=== PATIENT | female | born 1990 | race Caucasian/White ===

== ENCOUNTER 2016-07-20 09:21 | Emergency (ER) | payer OTHER ==
[~2016-07-20] VITALS: Ht 157.5 cm; Wt 66.5 kg
[2016-07-20 09:32] VITALS: BP 114/70; PULSE 86; TEMP 36.9; O2SAT 98; Ht 157.5 cm; Wt 66.5 kg
[2016-07-20] MEDS ORDERED: PRENTAB26 PO (10:22)
--- NOTE | 2016-07-20 10:48 | EMERGENCY ROOM VISIT NOTE ---
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 The patient washed out the wound very well at the time of the exposure. The source patient was identified as Robert Jones in Rm [id number]. REVIEW OF SYSTEMS: The patient's medical history form was completed and reviewed with positive pertinent findings as noted in history of present illness. PMH: The patient is healthy; there is no significant medical history. SOCIAL HISTORY: Patient lives with her significant other. The patient denies any tobacco or alcohol use. PHYSICAL EXAM: Vital Signs are reviewed: Reviewed Nurse's notes and agree. GENERAL: 25 year-old white female appears in no acute distress. MENTAL status: Alert oriented x3. LEFT INDEX FINGER: There is a small puncture wound on the palmar aspect of the proximal phalanx. No active bleeding noted. EMERGENCY DEPARTMENT COURSE: The wound was cleaned with iodine and bacitracin and a bandage applied. Significant body fluid exposure laboratory requisition for employee health was completed, calcium for HIV related test was completed, informed consent for HIV antibody test was reviewed and signed. DIAGNOSIS: Significant body fluid exposure secondary to needle stick DISCHARGE INSTRUCTIONS: Any signs of infection, follow-up with your family doctor. The hospital we'll call you with results of the testing. This will be done through occupational health. Current/Historical Medications Scheduled Multivit/Min/Iron/Fol Ac/Pren ( Vitamin), 1 TAB PO DAILY Allergies Coded Allergies: No Known Allergies (Verified , 07/20/16) Uncoded Allergies: UNKNOWN (Allergy, Unknown, 08/31/02) Vital Signs Date Time Temp Pulse Resp B/P Pulse Ox O2 Delivery O2 Flow Rate FiO2 07/20/16 09:32 36.9 86 20 114/70 98 Room Air Departure Information Referrals Randall Lucio M.D. (PCP) Patient Instructions A Signature Page, [facility]
== END 2016-07-20 10:50 | disposition home or self-care (01) ==
LOC: C.EDB 09:22
DX: S61.231A Puncture wound without foreign body of left index finger without damage to nail, initial encounter (principal); Z77.21 Contact with and (suspected) exposure to potentially hazardous body fluids; W46.1XXA Contact with contaminated hypodermic needle, initial encounter; Y99.0 Civilian activity done for income or pay

== ENCOUNTER 2017-02-15 05:30 | Inpatient (IN) | payer OTHER ==
[~2017-02-15] VITALS: Ht 157.5 cm; Wt 79.1 kg
[~2017-02-15 05:30] MED LIST: PRENTAB26 PO
[2017-02-15] MEDS ORDERED: RANI150T3 PO (06:20)
[2017-02-15] MEDS ORDERED: DOCU-94 PO (06:20)
[2017-02-15] MEDS ORDERED: SUCR1TAB29 PO (06:20)
[2017-02-15 06:21] VITALS: Ht 157.5 cm; Wt 79.1 kg
[2017-02-15] MEDS: LACTATED RINGER'S 1000ML 1,000 ML IV SCH ×2 (06:30→07:40)
[2017-02-15] MEDS ORDERED: BUPIVACAINE 0.25% 30 ML VIAL ONE (06:53)
[2017-02-15] MEDS ORDERED: FENTANYL CITRATE INJ 50 MCG/1 ML 2 ML VIAL ONE (06:53)
[2017-02-15] MEDS ORDERED: EpHEDrine SULFATE INJ 50 MG/ML AMP ONE (06:53)
[2017-02-15] MEDS ORDERED: FENTANYL 2MCG/ML ROPIV 1.25MG/ML 100ML BAG EPI ONE (06:53)
[2017-02-15 07:03] LABS: HEMATOCRIT 38.3 % (37-47); MEAN CELL VOLUME 86.3 fL (80-100); MEAN CORPUSCULAR HEMOGLOBIN 29.3 pg (25-34); MEAN PLATELET VOLUME 9.7 fL (7.4-10.4); PLATELET COUNT 204 K/uL (130-400); RED BLOOD COUNT 4.44 M/uL (4.2-5.4); WHITE BLOOD COUNT 8.63 K/uL (4.8-10.8)
[2017-02-15 07:26] LABS: MEAN CORPUSCULAR HGB CONC 33.9 g/dl (32-36)
--- NOTE | 2017-02-15 07:45 | HISTORY & PHYSICAL EXAMINATION ---
DATE OF ADMISSION: 02/15/2017 HISTORY OF PRESENT ILLNESS: The patient is a 26-year-old , due date is 03/05/2017 making her 38+ weeks today, presented to labor and delivery with spontaneous rupture of membranes at 0400 hours. Amniotic fluid was clear on rupture. On labor and delivery, she is grossly ruptured and amniotic fluid is clear. She is 4 cm, 80% and -1 station. Bedside ultrasound shows cephalic presentation. heart rate is category 1. The patient is basia every 2-4 minutes. COURSE: Has been unremarkable. LABORATORY DATA: Blood type A positive, antibody negative, GBS is negative. RPR nonreactive. PAST MEDICAL HISTORY: 1. History of ventriculoseptal defect. 2. Depression. PAST SURGICAL HISTORY: The patient has had colposcopy and dental surgery. ALLERGIES: The patient has no known medical allergies. SOCIAL HISTORY: Nonsmoker. Nondrug user. Denies tobacco use as well. FAMILY HISTORY: Noncontributory. OBSTETRICAL AND GYNECOLOGICAL HISTORY: The patient is a [employer] . The patient, because of a history of ventriculoseptal defect, saw maternal medicine. individualized education plan aide was consulted as well as Dr. Stone. Even though the patient has a history of ventriculoseptal defect, she does not need any extra monitoring nor she requires assistance in second stage of labor. PHYSICAL EXAMINATION: GENERAL: Well-developed, well-nourished white female in no acute distress. HEART: S1, S2, regular rhythm and rate. LUNGS: Clear to auscultation bilaterally. ABDOMEN: Gravid. Bedside ultrasound shows cephalic presentation. PELVIC: The patient is 4 cm, 80% and -1 station. EXTREMITIES: No cyanosis, clubbing or edema. ASSESSMENT AND PLAN: A 28-year-old 1, para 0 at 38+ weeks, premature rupture of membranes. Plan is to admit patient and anticipate vaginal delivery.
[2017-02-15] MEDS ORDERED: LACTATED RINGER'S 1000ML 500 ML IV PRN (07:50)
[2017-02-15] MEDS ORDERED: NALOXONE HCL INJ 1 MG in SODIUM CHLORIDE 0.9% 1000ML 1,000 ML IV PRN (07:50)
[2017-02-15] MEDS ORDERED: DiphenhydrAMINE HCL 50 MG/ML VIAL IV PRN (08:00)
[2017-02-15] MEDS ORDERED: FENTANYL 2MCG/ML ROPIV 1.25MG/ML 100ML BAG EPI PRN (08:00)
[2017-02-15] MEDS ORDERED: NALBUPHINE HCL INJ 10 MG/ML AMP IV PRN (08:00)
[2017-02-15] MEDS ORDERED: EpHEDrine SULFATE INJ 50 MG/ML AMP IV PRN (08:00)
[2017-02-15] MEDS ORDERED: NALOXONE HCL INJ 0.4 MG/1 ML VIAL/CARP IV PRN (08:00)
[2017-02-15] MEDS ORDERED: ONDANSETRON INJ 2 MG/ML 2 ML VIAL IV PRN (08:00)
[2017-02-15] MEDS ORDERED: OXYTOCIN 30 UNITS/500ML NSS IV ONE (09:25)
[2017-02-15] MEDS ORDERED: METHYLERGONOVINE MALEATE 0.2 MG/ML AMP ONE (10:38)
[2017-02-15] MEDS ORDERED: LANOLIN OINT EXT PRN ×2 (10:45)
[2017-02-15] MEDS ORDERED: OXYCODONE/ACETAMINOPHEN 5-325 TAB PO PRN (10:45)
[2017-02-15] MEDS ORDERED: OXYTOCIN 30 UNITS/500ML NSS IV PRN (10:45)
[2017-02-15] MEDS ORDERED: ACETAMINOPHEN 325 MG TAB PO PRN (10:45)
[2017-02-15] MEDS ORDERED: MEASLES, MUMPS & RUBELLA VIRUS VIAL SQ. ONE (10:45)
[2017-02-15] MEDS ORDERED: HYDROCORTISONE ACETATE 25 MG SUPP PR PRN (10:45)
[2017-02-15] MEDS ORDERED: ACETAMINOPHEN/CODEINE 300/30MG TAB PO PRN ×2 (10:45)
[2017-02-15] MEDS ORDERED: DIPHTHERIA/TETANUS/PERTUSSIS 0.5 ML SYR/VIAL IM. ONE (10:45)
[2017-02-15] MEDS ORDERED: BENZOCAINE 20% AER SPR 82.5 GM CAN EXT PRN (10:45)
[2017-02-15] MEDS ORDERED: SUPERCREAM 0.870 % 15GM JAR EXT PRN (10:45)
--- NOTE | 2017-02-15 10:59 | DELIVERY SUMMARY ---
DATE OF OPERATION: 02/15/2017 TIME OF DELIVERY: 10:33 a.m. DELIVERY OF PLACENTA: 10:35 a.m. DELIVERY NOTE: The patient is a 26-year-old 1 para 0 at 37 weeks and 3 days gestation who is admitted to labor and delivery on the morning of February 15, 2017, with spontaneous rupture of membranes that occurred at 4:30 a.m. with clear amniotic fluid noted. She received an epidural for anesthesia and progressed spontaneously on her own. She reached complete dilation at 10:11 a.m. with urge to push. She pushed to delivery at 10:33 a.m. She delivered a viable male in the left occiput anterior position to an intact perineum. The baby was then delivered and placed on the patient's abdomen. Cord was clamped x2 and cut. Apgars were 8 at 1 minute and 9 at 5 minutes. Please see nursing notes for further baby assessment. Cord blood was then obtained and intact placenta with 3-vessel cord was delivered at 10:35. Oxytocin infusion was then began. The lower uterine segment and vagina was cleared of any blood clots and debris. Exploration of the perineum noted on laceration. Estimated blood loss was 400 cc. All sponge and instrument counts were found to be correct x2. The patient tolerated the delivery well and was in recovery with stable vital signs. I attest to the content of the Intraoperative Record and any orders documented therein. Any exception s are noted below.
--- NOTE | 2017-02-15 11:18 | Anesthesia Procedure Note ---
Anesthesia Epidural Removal Nt Date & Time Feb 15, 2017 at 11:18 Vital Signs Pain Intensity: 0.0 Notes Mental Status: alert / awake / arousable, participated in evaluation Nausea / Vomiting: adequately controlled Pain: adequately controlled Airway Patency, RR, SpO2: stable & adequate BP & HR: stable & adequate Hydration State: stable & adequate Neuraxial Anesthesia: was administered, sensory block is resolving Anesthetic Complications: no major complications apparent, pt satisfied with anesthetic care Epidural: removed without complications, with tip intact
[2017-02-15 15:00] VITALS: BP 105/70; PULSE 85; TEMP 36.5
[2017-02-15] MEDS: DOCUSATE SODIUM 100 MG CAP PO SCH (19:33)
[2017-02-15 19:40] VITALS: BP 106/72; PULSE 89; TEMP 36.8; O2SAT 98
[2017-02-16] VITALS: BP 110/72; PULSE 87; TEMP 36.8
[2017-02-16] MEDS: IBUPROFEN 600 MG TAB PO PRN ×3 (00:37→19:39)
[2017-02-16 04:15] VITALS: BP 118/64; TEMP 36.6
[2017-02-16 06:56] LABS: HEMATOCRIT 34.6 % (37-47)
[2017-02-16 07:28] VITALS: BP 101/70; PULSE 88; TEMP 36.7; O2SAT 98
[2017-02-16] MEDS: FERROUS SULFATE 325 MG TAB PO SCH (08:50)
[2017-02-16] MEDS: PRENATAL VITAMIN TAB PO SCH (08:50)
[2017-02-16] MEDS: DOCUSATE SODIUM 100 MG CAP PO SCH ×2 (08:50→19:37)
--- NOTE | 2017-02-16 11:10 | OB/GYN Progress Note ---
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 Subjective conversation w/ patient, physical exam Ambulation: ambulating normally Voiding: no voiding problems Passing Gas: Yes Diet Tolerance: Regular Diet Lochia: Small Feeding Type: Breast Feeding Objective Vital Signs Date Time Temp Pulse Resp B/P (MAP) Pulse Ox O2 Delivery O2 Flow Rate FiO2 02/16/17 08:00 Room Air 02/16/17 07:28 36.7 88 20 101/70 (80) 98 Room Air 02/16/17 04:15 36.6 18 118/64 (82) Room Air 02/16/17 00:00 36.8 87 18 110/72 (85) 02/16/17 00:00 Room Air 02/15/17 19:40 36.8 89 18 106/72 (83) 98 Room Air 02/15/17 15:00 36.5 85 16 105/70 (82) Room Air 02/15/17 15:00 Room Air Physical Exam General Appearance: WELL-APPEARING, NO APPARENT DISTRESS Abdomen: non tender, soft Fundus: Firm Extremities: non-tender, normal inspection, no pedal edema Laboratory Results Last 24 Hours Test 02/16/17 06:28 Hemoglobin 11.6 g/dL Hematocrit 34.6 % Assessment and Plan Post- Day Number: 1 Continue Routine Care: TENT D/C IN am
[2017-02-16 15:00] VITALS: BP 129/75; PULSE 82; TEMP 36.6; O2SAT 97
[2017-02-16 15:30] VITALS: O2SAT 97
[2017-02-16] MEDS ORDERED: BISACODYL 5 MG TABEC PO SCH (20:00)
[2017-02-16 23:30] VITALS: BP 110/71; PULSE 92; TEMP 36.5; O2SAT 96
[2017-02-17 06:57] LABS: HEMATOCRIT 34.1 % (37-47); MEAN CORPUSCULAR HEMOGLOBIN 28.3 pg (25-34); MEAN CORPUSCULAR HGB CONC 32.6 g/dl (32-36); MEAN PLATELET VOLUME 9.7 fL (7.4-10.4); PLATELET COUNT 203 K/uL (130-400); RED BLOOD COUNT 3.92 M/uL (4.2-5.4); WHITE BLOOD COUNT 10.31 K/uL (4.8-10.8)
[2017-02-17] MEDS ORDERED: BISACODYL 10 MG SUPP PR PRN (07:00)
[2017-02-17 07:50] VITALS: BP 102/71; PULSE 86; TEMP 36.7; O2SAT 98
[2017-02-17] MEDS: IBUPROFEN 600 MG TAB PO PRN (08:07)
[2017-02-17] MEDS: PRENATAL VITAMIN TAB PO SCH (08:41)
[2017-02-17] MEDS: FERROUS SULFATE 325 MG TAB PO SCH (08:41)
[2017-02-17] MEDS: DOCUSATE SODIUM 100 MG CAP PO SCH (08:42)
--- NOTE | 2017-02-17 10:08 | OB/GYN Progress Note ---
[employer] Progress Note Date of Service Feb 17, 2017. Subjective conversation w/ patient Ambulation: ambulating normally Voiding: no voiding problems Passing Gas: Yes Diet Tolerance: Regular Diet Lochia: Small Feeding Type: Breast Feeding Pain: 07/28 Notes: Doing well, no concerns. Would like to go home today. Objective Vital Signs Date Time Temp Pulse Resp B/P (MAP) Pulse Ox O2 Delivery O2 Flow Rate FiO2 02/17/17 07:50 36.7 86 20 102/71 (81) 98 Room Air 02/17/17 07:50 98 Room Air 02/16/17 23:30 96 Room Air 02/16/17 23:30 36.5 92 20 110/71 (84) 96 Room Air 02/16/17 15:30 97 Room Air 02/16/17 15:00 36.6 82 18 129/75 (93) 97 Room Air Physical Exam General Appearance: WELL-APPEARING Respiratory/Chest: chest non-tender, lungs clear Cardiovascular: regular rate, rhythm Abdomen: normal bowel sounds, soft Fundus: Firm Extremities: normal range of motion, non-tender, no calf tenderness Laboratory Results Last 24 Hours Test 02/17/17 06:29 White Blood Count 10.31 K/uL Red Blood Count 3.92 M/uL Hemoglobin 11.1 g/dL Hematocrit 34.1 % Mean Corpuscular Volume 87.0 fL Mean Corpuscular Hemoglobin 28.3 pg Mean Corpuscular Hemoglobin Concent 32.6 g/dl RDW Standard Deviation 44.7 fL RDW Coefficient of Variation 14.4 % Platelet Count 203 K/uL Mean Platelet Volume 9.7 fL Assessment and Plan Post- Day Number: 2 Continue Routine Care: -D/C home today -F/U in 6 weeks.
--- NOTE | 2017-02-17 10:09 | Discharge Instructions ---
Discharge Instructions Date of Service Feb 17, 2017. Admission Reason for Admission: Discharge Discharge Diagnosis / Problem: Vaginal Delivery Discharge Goals Goal(s): Routine recovery after delivery Medications Continue Dispensed Medications: supercream, dermaplast, tucks, lansinoh Activity Recommendations Activity Limitations: per Instructions/Follow-up section ACTIVITY RECOMMENDATIONS: * Gradual return to full activity over the next 2-3 weeks. * No lifting - nothing heavier than baby over the next 2-3 weeks. * Do not engage in vigorous exercise, sexual activity or sports until cleared by your physician. * Do not drive or operate any motorized equipment until cleared by your physician. * You may shower/bathe daily. BREAST CARE: If you are not breast feeding: * Wear a supportive bra 24 hours a day for one to two weeks. * Avoid stimulating your breasts and nipples as much as possible during the first few weeks after delivery. * When taking a shower, have the warm water hit your back, not breasts. * When your breasts feel full, apply ice packs. Usually three to four times a day helps ease the discomfort. * Take a mild pain medication (Tylenol/Motrin) when you are uncomfortable. If breast feeding: * Use breast milk to lubricate nipples. Lansinoh cream may be used for sore nipples. You do not need to remove cream prior to breast feeding. If using a different brand of cream, check the label for directions regarding removal of cream prior to nursing. * Wear a supportive bra. * If having problems with breasts or breast feeding, call a customer service sales consultant or your health care provider. EPISIOTOMY CARE: After delivery, if you have an episiotomy (stitches), the following steps will ease discomfort and aid healing. * For the first 24 hours after delivery, place ice packs next to your episiotomy to help reduce swelling. * After the first 24 hour-period, sitz baths, either portable or in the tub, are suggested. A shower with a shower arm sprayed over the episiotomy may be comforting. * Gracia care should be done after each voiding and bowel movement. Squirt warm water from a plastic bottle over the perineum (region of the body between the anus and urinary opening) and pat dry. * Use Dermoplast to ease discomfort. Shake container. Harmony directly over the episiotomy. * Place a Tucks on a clean sanitary pad next to your episiotomy. OVER THE COUNTER MEDICATION: * For discomfort or pain, you may use Acetaminophen (Tylenol), Ibuprofen (Advil ), or Naproxen (Aleve) following the package directions. * For constipation you may use Colace following the package directions. SPECIAL CARE INSTRUCTIONS: When you are discharged from the hospital, it is important for you to follow the instructions listed below: * During the first week at home, you should be able to care for yourself and your baby. In addition, the usual light household activities are encouraged. * Limit your activities to the way you feel. Do not try to clean the house or move furniture. Be sensible. * If you actively engage in sports and have done so up until the time of your delivery, you may resume these activities as soon as you feel able. This may take up to one month or even longer. Use good judgment. * Continue to take your vitamins for at least six weeks after the of your baby. * Your diet need not be limited unless you were on a special diet before your delivery. Breast-feeding mothers need around 2500 calories per day and at least 64-80 ounces of fluid per day (8 to 10 glasses). * You should eat foods from the four major food groups. Crash diets or fad diets are to be avoided. Eating lean meats, fresh fruits and vegetables, low-fat dairy products, high fiber foods and a regular exercise program, will help you get back to your pre- weight without putting your health at risk. * Constipation is sometimes a problem after delivery. Take a mild laxative as needed. If breast feeding, Milk of Magnesia is acceptable to use. You may use a suppository or Fleets enema if no episiotomy. * A daily shower or tub bath is suggested. Be sure to thoroughly and gently dry the perineum. * A bloody vaginal discharge will usually continue until around four weeks post . A small amount of bleeding may continue for as long as six weeks. Vaginal discharge changes from the bright red bleeding after delivery to pink then brownish and finally yellowish-pink before becoming white and disappearing. * Bleeding may increase with activity. Your first period may come in 4-8 weeks. If you are breast feeding, your period may be delayed even longer. * [place] (sex) can begin whenever both you and your partner feel comfortable and do not have any form of genital infection. It is recommended that you wait until after your return appointment and discuss with your physician. If you have questions, please talk to your health care practitioner. A condom should be used to prevent infection and . * Foreplay, gentle intercourse and lubrication is very important the first several times to prevent pain. A water-based lubricant such as K-Y jelly or Astroglide may be used. * Tampons may be used six weeks after delivery. * Douching should be avoided for 6 weeks after delivery. * If you have RH negative blood and your baby is RH positive, you will receive RHOGAM by injection prior to discharge. The nurse will give you a card to keep with you that has the date and place that you received RHOGAM after delivery. * During your care, you had a Rubella screen done to check for the presence of rubella antibodies in your blood. If your test was negative, you will receive a Rubella vaccine prior to discharge. This vaccine may cause a fever, soreness at the injection site and flu-like symptoms. If these symptoms persist, notify your health care practitioner. is not advised for three months after a Rubella vaccine. There is a higher chance of having a baby with defects if conceived within three months of getting the vaccine. * If you were discharged 24 hours from delivery or before 48 hours: Visiting nurses will come to your home 48 hours after discharge to assess you and your baby. The visiting nurse will meet with you while you are in the hospital to arrange a time and get directions to your home. * Verbalizes understanding of car seat law as reviewed with patient nursing. * Car Seat hand-out given and reviewed with patient by nursing. * Shaken baby information reviewed with patient by nursing. Call you doctor if: * Heavy bleeding (saturating several pads an hour) or passing clots the size of your fist. * A fever >101 degrees F (38.3 degrees C) on two occasions four hours apart and/or chills. * Unusual pain in the pelvic or vaginal areas. * "Baby Blues" lasting longer than two weeks. If you have any questions or concerns, call your health care practitioner at . FOLLOW-UP VISIT: * Please call the office at to schedule a 6 week examination. It is important you keep this appointment. * It is important for you to make arrangements for either yearly or twice yearly check-ups thereafter. . Current Hospital Diet Patient's current hospital diet: Regular OB Diet Discharge Diet Recommended Diet: Regular OB Diet Pending Studies Studies pending at discharge: no Medical Emergencies . Who to Call and When: Medical Emergencies: If at any time you feel your situation is an emergency, please call 911 immediately. . Non-Emergent Contact Non-Emergency issues call your: Primary Care Provider, Highway Engineer . . "Provider Documentation" section prepared by Jose Peng. . VTE Core Measure Inpt VTE Proph given/why not?: Treatment not indicated
[2017-02-17 10:31] VITALS: BP_DIAS 71; PULSE 86; TEMP 36.7
== END 2017-02-17 11:50 | disposition home or self-care (01) | DRG 775 ==
LOC: C.OPB 05:30 → C.LD 05:30 → C.OPB 06:14 → C.OBG 14:28
PROVIDERS: ADMIT Obstetrics & Gynecology; ATTEND Obstetrics & Gynecology
PROC: 4A1HXFZ Monitoring of Products of Conception, Cardiac Rhythm, External Approach (ICD-10-PCS; principal; 2017-02-15)
PROC: 10E0XZZ Delivery of Products of Conception, External Approach (ICD-10-PCS; principal; 2017-02-15)
DX: O99.340 Other mental disorders complicating pregnancy, unspecified trimester (principal); Q21.0 Ventricular septal defect; O99.419 Diseases of the circulatory system complicating pregnancy, unspecified trimester; F32.9 Major depressive disorder, single episode, unspecified; Z37.0 Single live birth; Z3A.37 37 weeks gestation of pregnancy; O42.92 Full-term premature rupture of membranes, unspecified as to length of time between rupture and onset of labor; Z80.9 Family history of malignant neoplasm, unspecified; Z83.3 Family history of diabetes mellitus; Z82.79 Family history of other congenital malformations, deformations and chromosomal abnormalities; Z82.49 Family history of ischemic heart disease and other diseases of the circulatory system

== ENCOUNTER 2019-09-04 14:31 | Inpatient (IN) ==
[2019-09-04] MEDS ORDERED: ACETAMINOPHEN 1,000 MG/100 ML VIAL IV STA (15:10)
[2019-09-04] MEDS ORDERED: ONDANSETRON INJ 2 MG/ML 2 ML VIAL IV STA (15:10)
[2019-09-04] MEDS ORDERED: SODIUM CHLORIDE 0.9% 1000ML 1,000 ML IV SCH (15:15)
[2019-09-04 15:32] LABS: Basophils # (auto) 0.01 K/uL (0-0.2); Basophils % (auto) 0.1 %; Eosinophils # (auto) 0.02 K/uL (0-0.5); Eosinophils % (auto) 0.1 %; Hemoglobin 14.2 g/dL (12.0-16.0); Immature Granulocytes # (auto) 0.04 K/uL (0.00-0.02); Immature Granulocytes % (auto) 0.3 %; Lymphocytes # (auto) 1.13 K/uL (1.2-3.4); Lymphocytes % (auto) 7.4 %; Mean Corpuscular Hemoglobin 30.7 pg (25-34); Mean Corpuscular Hgb Conc 34.6 g/dL (32-36); Mean Corpuscular Volume 88.7 fL (80-100); Mean Platelet Volume 9.6 fL (7.4-10.4); Monocytes # (auto) 1.15 K/uL (0.11-0.59); Monocytes % (auto) 7.5 %; Neutrophils % (auto) 84.6 %; Platelet Count 236 K/uL (130-400); RDW Coefficient of Variation 13.9 % (11.5-14.5); RDW Standard Deviation 45.2 fL (36.4-46.3); Red Blood Count 4.62 M/uL (4.2-5.4); White Blood Count 15.25 K/uL (4.8-10.8)
[2019-09-04 15:43] LABS: Albumin Level 3.2 gm/dl (3.4-5.0); BUN Creatinine Ratio 12.8 (10-20); Creatinine Clr Calc Pharmacy 127.1 ml/min; Est GFR (African American) 141.2; Est GFR (Non-African American) 121.9; Potassium 3.6 mmol/L (3.5-5.1)
[2019-09-04 15:45] LABS: Albumin Globulin Ratio 0.7 (0.9-2); Bilirubin,Total 0.6 mg/dl (0.2-1); Globulin 4.7 gm/dl (2.5-4.0); Total Protein 7.9 gm/dl (6.4-8.2)
--- NOTE | 2019-09-04 16:19 | Ultrasound Report ---
ULTRASOUND LIMITED CLINICAL HISTORY: Crampy abdominal pain. COMPARISON STUDY: Limited ultrasound dated 08/17/2019. FINDINGS: Real-time, grayscale, and color Doppler sonography of the fetus and gravid uterus is perfor med. There is a single live intrauterine gestation with an estimated heart rate of 154 beats per janeth te. The placenta is posterior and normal in appearance. The femoral length measures 3.95 cm, correspo nding to an estimated age of 22 weeks 5 days. The amniotic fluid index measures 13.79 cm, with the la rgest pocket measuring 4.86 cm. There is trace free fluid in the right lower quadrant. There is a non compressible blind-ending tubular structure in the right lower quadrant which corresponds to the site of pain. This measures up to 1.0 cm in diameter and is concerning for an abnormal appendix. There is no significant hyperemia seen on color imaging. IMPRESSION: 1. There is a single live intrauterine gestation with an estimated age of 22 weeks 5 days by femoral length measurement. 2. Note that this does not constitute a dedicated anatomic scan. 3. Right lower quadrant abnormality is above, with sonographic features concerning for acute appendic itis. If there is clinical concern for acute appendicitis an abdominal CT should be considered for fu rther assessment. Electronically signed by: Acosta Danielson M.D. 09/04/2019 4:18 PM
[2019-09-04] MEDS ORDERED: PIPERACILLIN/TAZOBACTAM 4.5 GM/120 ML BAG IV ONE (16:42)
[2019-09-04] MEDS ORDERED: PIPERACILL/TAZOBAC CONSULT ACTIVE PRN ×2 (16:42→21:21)
[2019-09-04] MEDS ORDERED: MoRPHine SULFATE 4 MG/ML 1 ML CARP\\VIAL IV STA (16:42)
[2019-09-04 16:52] LABS: Appearance Urine Clear (Clear); Bilirubin Urine Negative (Negative); Blood Urine Negative (Negative); Color Urine Yellow; Glucose Urine UA Negative (Negative); Leukocyte Esterase Urine Negative (Negative); Nitrite Urine Negative (Negative); Protein Urine Negative (Negative); Specific Gravity Urine 1.021 (1.000-1.030); Urobilinogen Urine Negative (Negative); pH Urine 6.5 (4.5-7.5)
[2019-09-04 16:54] LABS: Ketones Urine 4+ (Negative)
[2019-09-04] MEDS ORDERED: ONDANSETRON INJ 2 MG/ML 2 ML VIAL ONE (18:07)
[2019-09-04] MEDS ORDERED: fentaNYL citrate 100 MCG/2 ML VIAL ONE ×3 (18:07→19:50)
[2019-09-04] MEDS ORDERED: ROCURONIUM BROMID 50MG/5ML SYR ONE (18:07)
[2019-09-04] MEDS ORDERED: PROPOFOL IV EMULSION 10 MG/ML 20 ML VIAL IV ONE (18:07)
[2019-09-04] MEDS ORDERED: BUPIVACAINE/EPINEPHRINE 0.5% MPF 1:200,000 10 ML VIAL ONE (18:07)
[2019-09-04] MEDS ORDERED: DEXAMETHASONE SOD INJ 4 MG/ML VIAL ONE (18:07)
[2019-09-04] MEDS ORDERED: LIDOCAINE HCL 2% 2 ML VIAL/AMP(20MG/ML) INFIL ONE (18:07)
--- NOTE | 2019-09-04 18:45 | History & Physical Report ---
Date of Service September 04, 2019 Assessment & Plan (1) Acute appendicitis: clinically and radiographically c/w acute appendicitis. seen by OB and they have graciously agreed to admit/supervise pt/fetus discussed risks ( bleeding/infection/dvt/pe/mi/cva/injury to an organ/miscarriage/etc...) questions answered. will proceed with laparoscopic/poss open appendectomy. Acute appendicitis type: unspecified acute appendicitis type Qualified Code(s): K35.80 - Unspecified acute appendicitis (2) Supervision of normal intrauterine in multigravida: History of Present Illness Primary Care Provider: Randall Lucio MD 29 year old 22 weeks woke up at 2 AM with vague abdominal pain and nausea. went to work and had emesis and worseing pain. pain now in RLQ. WBC 15,000 and US revealing acute appendicitis. Allergies Allergy/AdvReac Type Severity Reaction Status Date / Time No Known Allergies Allergy Verified 09/04/19 16:38 Home Medications Home Medications Medication Instructions Recorded Confirmed Type PNV cmb#95-ferrous fumarate-FA 1 tab PO DAILY 09/04/19 09/04/19 History [] docusate sodium [Colace] 100 mg PO DAILY 09/04/19 09/04/19 History famotidine 20 mg PO DAILY 09/04/19 09/04/19 History Past Med/Surg History Medical History (Updated 09/04/19 @ 18:10 by Ayden Brady) Depression Prior miscarriage with , antepartum Surgical History (Updated 06/14/19 @ 15:32 by Aggie Robbins) S/P loop electrosurgical excision procedure S/P wisdom tooth extraction Family History (Updated 06/14/19 @ 15:33 by Aggie Robbins) Mother Hypertension Grandmother (Maternal) Colorectal cancer Other Diabetes Social History (Updated 06/14/19 @ 15:09 by Aggie Robbins) Preferred Language: [place]ian marital status: Single marital status details: suraj Shantal Edwards (28) [phone] Current Living Situation: Family Current Living Situation Comment: lives with fob & son, dog current occupational status: employed current occupation: [employer] Feels Safe at Home: Yes Smoking Status: Never smoker Review of Systems All systems reviewed & are unremarkable except as noted in HPI & below Physical Exam Constitutional: WD/WN, vitals as above no acute distress and not ill appearing Eyes: PERRL, conjunctivae normal, anicteric sclerae EOM intact bilaterally ENMT: external ear and nose normal, oropharynx normal Ears: no hearing im pairment Neck: trachea midline, no thyromegaly Respiratory: normal respiratory effort; no respiratory distress and does not use accessory muscles Cardiovascular: Rate/Rhythm: regular rate and regular rhythm Gastrointestinal (Abdomen): +gravid uterus. +RLQ ttp. +guarding. +Rovsing. Skin: no rashes, warm and dry Psychiatric: Orientation: alert, oriented x 3 and cooperative Results & Data Vital Signs (Past 12 Hours) Vital Signs Temp Pulse Pulse Resp BP BP Pulse Ox 09/04/19 18:23 80 16 114/71 99 09/04/19 17:19 93 H 19 97 09/04/19 17:00 94 H 22 117/68 97 09/04/19 16:24 83 17 111/69 99 09/04/19 14:43 36.8 C 89 22 115/73 98
--- NOTE | 2019-09-04 18:48 | Anesthesiology Consultation ---
Date of Service September 04, 2019 The patient is 22 weeks . She had an ultrasound by Dr. Celestin in the ER that showed heart tones. I discussed the risk of miscarriage and defects with the patient. She understands the risks and would like to proceed. Assessment & Plan Chart Review Chart Review: Acceptable Risk for Surgery and Patient NOT seen in Pre Admission Testing Consults Requested none ASA ASA2 Proposed Anesthesia Anesthesia Type: General Risk / Benefits Reviewed With: PT / POA / Parent / Guardian, Accepts Plan and Informed Consent Obtained History Surgery Operation Date: 09/04/19 17:55 Proposed Procedures p Laparoscopic Appendectomy - Anatoliy Izaguirre, DO Height/Weight Height: 5 ft 2 in Weight: 75.2 kg Allergies Allergy/AdvReac Type Severity Reaction Status Date / Time No Known Allergies Allergy Verified 09/04/19 16:38 Medications Home Medications Medication Instructions Recorded Confirmed Last Taken PNV [id number] fumarate-FA 1 tab PO DAILY 09/04/19 09/04/19 Unknown [] docusate sodium [Colace] 100 mg PO DAILY 09/04/19 09/04/19 Unknown famotidine 20 mg PO DAILY 09/04/19 09/04/19 Unknown Active Medications Generic Name Dose Route Start Last Admin Trade Name Freq PRN Reason Stop Dose Admin Piperacillin Sod/Tazobactam Sod 4.5 gm in 120 mls @ 30 mls/hr 09/04/19 16:42 09/04/19 16:56 Zosyn IV 09/04/19 20:41 30 mls/hr NOW ONE Administration NPO Date Last Intake of Fluids: 09/04/19 Time Last Intake of Fluids: 13:00 Date Last Intake of Solids: 09/03/19 Time Last Intake of Solids: 19:00 Past Medical History Medical History (Updated 09/04/19 @ 18:48 by Jaxon Gay MD) Depression Prior miscarriage with , antepartum VSD (ventricular septal defect and aortic arch hypoplasia Exercise / Class Metabolic Activity II 4-5 Yardwork/Stairs/Walk up hill Past Family History Family History Mother Hypertension Grandmother (Maternal) Colorectal cancer Other Diabetes Past Surgical History Surgical History S/P loop electrosurgical excision procedure S/P wisdom tooth extraction Past Anesthesia History No Hx of Anesthesia Complications and No Family Hx of Anesthesia Complications History of PONV No Hx of PONV and No Hx of Motion Sickness Social History Smoking Status: Never smoker Review of Systems no chest pain or sob Physical Exam Vital Signs Last Vital Signs Temp 36.8 C 09/04/19 14:43 Pulse 80 09/04/19 18:23 Resp 16 09/04/19 18:23 BP 114/71 09/04/19 18:23 Pulse Ox 99 09/04/19 18:23 ENMT Mouth: no TMJ abnormality Thyromental Distance: > or= 3.5 Finger Breadths Mallampati Class: II Neck normal visual inspection Respiratory normal respiratory effort Auscultation: lungs clear to auscultation bilaterally Cardiovascular Rate/Rhythm: regular rate and regular rhythm Neurologic moves all extremities Psychiatric Orientation: alert and oriented x 3 Testing Laboratory Results 09/04/19 15:11 09/04/19 15:11 HCG, Quant [id number] mIU/ml 09/04/19 15:11 Urine Color Yellow 09/04/19 16:45 Urine Appearance Clear (Clear) 09/04/19 16:45 Urine pH 6.5 (4.5-7.5) 09/04/19 16:45 Ur Specific [place] 1.021 (1.000-1.030) 09/04/19 16:45 Urine Protein Negative (Negative) 09/04/19 16:45 Urine Glucose (UA) Negative (Negative) 09/04/19 16:45 Urine Ketones 4+ (Negative) H 09/04/19 16:45 Urine Nitrite Negative (Negative) 09/04/19 16:45 Ur Leukocyte Esterase Negative (Negative) 09/04/19 16:45 Blood Type A Positive 09/04/19 15:11 09/04/19 15:11 HCG, Quant [id number]
[2019-09-04] MEDS ORDERED: ONDANSETRON INJ 2 MG/ML 2 ML VIAL IV PRN ×2 (18:50→21:21)
[2019-09-04] MEDS ORDERED: HYDROmorphone INJ 1 MG/ML SYRINGE IV PRN ×2 (18:50→21:21)
[2019-09-04] MEDS ORDERED: LABETALOL HCL IV 5 MG/ML 20ML IV PRN (18:50)
[2019-09-04] MEDS ORDERED: PHENYLEPHRINE 100MCG/ML 5ML SYR IV PRN (18:50)
[2019-09-04] MEDS ORDERED: ATROPINE SULFATE 0.1 MG/ML 10ML SYR IV PRN (18:50)
[2019-09-04] MEDS ORDERED: ePHEDrine sulfate 50 MG/ML AMP IV PRN (18:50)
[2019-09-04] MEDS ORDERED: fentaNYL citrate 100 MCG/2 ML VIAL IV PRN (18:50)
[2019-09-04] MEDS ORDERED: NEOSTIGMINE METHYLSULFATE 5 MG/5 ML SYR ONE (19:23)
[2019-09-04] MEDS ORDERED: ATROPINE SO4 1 MG/ML 1ML VIAL ONE (19:23)
--- NOTE | 2019-09-04 20:00 | Operative Report ---
[facility] Post Operative Report Pre & Post Diagnosis Operation Date: 09/04/19 17:55 Pre-Op Diagnosis: acute appendicitis Post-Op Diagnosis: Acute appendicitis I identified the patient and participated in the time-out.: Yes Procedure Operation Date: 09/04/19 17:55 Actual Procedures p Laparoscopic Appendectomy(Not Applicable) - Anatoliy Izaguirre DO Surgeon Anatoliy Izaguirre DO Inspector Clip On Sunglasses n/a Estimated Blood Loss 3 Findings Consistent with Post-Op Diagnosis Specimens appendix Description of Procedure After informed consent was obtained the patient was taken to the operating room and placed in supine position. After successful intubation a Acuña catheter was placed and the abdomen was sterilely prepped and draped in usual fashion. An upper midline incision was made with an 11 blade scalpel and carried down through the soft tissues and cautery. The anterior rectus fascia was opened using cautery and two #0 Vicryl stay sutures were placed. Peritoneum was entered using blunt finger penetration. A 12 mm Marcos trocar was placed and the abdomen was insufflated to 18 mmHg. Laparoscope was inserted and the abdomen examined 360 degrees. There was a gravid uterus present however no other abnormalities. A left mid abdominal 12 mm port and a left upper quadrant 5 mm port were placed under direct vision. The patient was air planed to the left. Once in the abdomen my focus went right to the cecum. The appendix was readily identified. It was grossly inflamed but not perforated. I was able to grasp it and create a small window in the mesentery of the appendix with a [place] dissector. A 60 mm brown cartridge DUARTE was then used to transect the appendix at its base with the cecum. A second firing of the DUARTE brown cartridge across the mesentery of the appendix was performed and the appendix was placed into an Endo Catch bag and removed from the camera port site. Irrigation of the right lower quadrant and pelvis was performed. The staple lines were intact and appeared solid. I did run the small bowel backward for several feet. Gallbladder, liver, small bowel ,stomach etc. all appeared normal as did the gravid uterus. No other gross abnormalities were identified. There was adequate hemostasis. The trochars were all removed under direct vision and the abdomen desufflated. The fascia of the camera port was closed using 0 Vicryl in a [id number] fashion. The fascia of the 12 mm port was closed using 0 Vicryl in a simple interrupted fashion. The wounds were all thoroughly irrigated and closed using 4-0 Monocryl. Marcaine was injected around them for postoperative analgesia and skin glue used as a dressing. The patient was awakened extubated and transferred recovery in stable condition. I attest to the content of the Intraoperative Record and any orders documented therein. Any exceptions are noted below.
--- NOTE | 2019-09-04 20:36 | Anesthesiology Progress Note ---
Date of Service September 04, 2019 Anesthesia Post Procedure Vital Signs Vital Signs: Temp Pulse Pulse Resp BP BP Pulse Ox 09/04/19 18:23 80 16 114/71 99 09/04/19 17:19 93 H 19 97 09/04/19 17:00 94 H 22 117/68 97 09/04/19 16:24 83 17 111/69 99 09/04/19 14:43 36.8 C 89 22 115/73 98 Pain Intensity Lower Abdomen: Pain Intensity: 3 Transfer of Care Handoff Completed per policy Notes Mental Status: alert / awake / arousable Patient Amnestic to Procedure: Yes Nausea / Vomiting: adequately controlled Pain: adequately controlled Airway Patency, RR, SpO2: stable & adequate BP & HR: stable & adequate Hydration State: stable & adequate Anesthetic Complications: no major complications apparent and Pt Satisfied with anesthetic care Notes: The patient did well. She is awake and stable. heart tones were monitored in the PACU.
--- NOTE | 2019-09-04 21:04 | Emergency Department Note ---
Entered by Ayden Brady acting as a scribe for Jett Schaffer History of Present Illness General Chief complaint: Abdominal Pain Stated complaint: CRAMPING [address] [facility] SAID ER Time Seen by Provider: 09/04/19 15:02 Source: patient History of Present Illness Onset (ago): hour(s) (0200 this morning) Location: abdomen (lower abdomen) Pain Consistency: + constant Maximum Pain Intensity: 8 Quality: + other (cramping) Associated symptoms: + other (Positive for vomiting. Negative for vaginal bleeding and vaginal discharge. ) The patient is a 29 year old female who presents to the emergency department with complaints of constant lower abdominal cramping beginning at 0200 this morning. The patient states that she is 22 weeks . She notes that she woke up at 0200 this morning with constant lower abdominal cramping. She reports that she had three episodes of vomiting at 0730. The patient states that she is still having the lower abdominal cramping, but she also notes a sharp shooting pain on her right side. She denies any vaginal bleeding and vaginal discharge. She reports that she has not had any previous abdominal surgeries. Home Medications Home Medications Medication Instructions Recorded Confirmed Type PNV cmb#95-ferrous fumarate-FA 1 tab PO DAILY 09/04/19 09/04/19 History [] docusate sodium [Colace] 100 mg PO DAILY 09/04/19 09/04/19 History famotidine 20 mg PO DAILY 09/04/19 09/04/19 History Allergies Allergy/AdvReac Type Severity Reaction Status Date / Time No Known Allergies Allergy Verified 09/04/19 16:38 Past Med/Surg History Medical History (Updated 09/04/19 @ 18:48 by Jaxon Gay MD) Depression Prior miscarriage with , antepartum VSD (ventricular septal defect and aortic arch hypoplasia Surgical History S/P loop electrosurgical excision procedure S/P wisdom tooth extraction Family History Mother Hypertension Grandmother (Maternal) Colorectal cancer Other Diabetes Social History (Updated 06/14/19 @ 15:09 by Aggie Robbins) Preferred Language: Kiswahili marital status: Single marital status details: fob Shantal Edwards (28) [phone] Current Living Situation: Family Current Living Situation Comment: lives with fob & son, dog current occupational status: employed current occupation: [employer] Feels Safe at Home: Yes Smoking Status: Never smoker Review of Systems See HPI for pertinent positives & negatives. and A total of 10 systems reviewed and were otherwise negative Physical Exam Vital Signs Vital Signs - 24 hr 09/04/19 14:43 09/04/19 16:24 09/04/19 17:00 Temperature 36.8 C Temperature Source Oral Pulse Rate 89 94 H Pulse Rate [Finger] 83 Pulse Rate from SpO2 Sensor 94 H Pulse Rhythm Regular Pulse Strength Normal Respiratory Rate 22 17 22 Respiratory Effort / Characteristics Non-Labored Spontaneous Respiratory Depth Normal Respiratory Pattern Regular Blood Pressure 115/73 117/68 Blood Pressure [Left Arm] 111/69 Blood Pressure Mean 87 77 Blood Pressure Mean [Left Arm] 83 Blood Pressure Position Sitting Pulse Oximetry 98 99 97 Oxygen Delivery Method Room Air Room Air Sepsis Recent Fever Within 48 Hours No Sepsis New/Unexplained Change in Mental Status No Sepsis Action Taken by Nursing No Action Required 09/04/19 17:19 09/04/19 18:23 Temperature Temperature Source Pulse Rate 93 H Pulse Rate [Finger] 80 Pulse Rate from SpO2 Sensor 93 H Pulse Rhythm Pulse Strength Respiratory Rate 19 16 Respiratory Effort / Characteristics Respiratory Depth Respiratory Pattern Blood Pressure Blood Pressure [Left Arm] 114/71 Blood Pressure Mean Blood Pressure Mean [Left Arm] 85 Blood Pressure Position Pulse Oximetry 97 99 Oxygen Delivery Method Room Air Sepsis Recent Fever Within 48 Hours Sepsis New/Unexplained Change in Mental Status Sepsis Action Taken by Nursing GENERAL: She is oriented to person, place, and time. She appears well-developed and well-nourished. She does not appear distressed. HENT: Exam performed. Head: Normocephalic and atraumatic. Right Ear: External ear normal. No mastoid tenderness. Left Ear: External ear normal. No mastoid tenderness. Mouth/Throat: The oropharynx is clear and moist. No trismus in the jaw. No dental abscesses or uvula swelling. No oropharyngeal exudate or tonsillar abscesses. EYES: Conjunctivae and EOM are normal. Pupils are equal, round, and reactive to light. Right eye exhibits no discharge. Left eye exhibits no discharge. No scleral icterus. NECK: Normal range of motion. Neck supple. No JVD present. No spinous process tenderness present. No carotid bruit present. No rigidity. No tracheal deviation and normal range of motion present. No Brudzinski's sign and no Kernig's sign noted. CV: Normal rate, regular rhythm, normal heart sounds and intact distal pulses. There is no peripheral edema. Palpable radial pulses bue. PULM/CHEST: Effort normal and breath sounds normal. No respiratory distress. No stridor. She has no wheezes. She has no rales. Chest Wall: She exhibits no tenderness. ABD: The abdomen is soft. Bowel sounds are normal. She has no distension. No mass is present. There is no rebound, no guarding, no Jin's sign and no tenderness at McBurney's point. Rovsig negative. Pain to palpation to RLQ, suprapubic region, and LLQ. Abdomen is gravid. MUSC/SKEL: Normal range of motion. There is no peripheral edema, tenderness or deformity. LYMPH: No cervical adenopathy. NEURO: She is alert and oriented to person, place, and time. She has normal strength. No cranial nerve deficit or sensory deficit. Coordination and gait normal. GCS eye subscore is 4. GCS verbal subscore is 5. GCS motor subscore is 6. cerbellar tests wnl. SKIN: Skin is warm and dry. She is not diaphoretic. PSYCH: She has a normal mood and affect. Her behavior is normal. Judgment and thought content normal. Course Course 1503: Per review of EMR, the patient is G1 with a history of 1 spontaneous . She was last seen in her OB office on 08/21, and the fetus had a VSD at that time. She was seen for bright red bleeding. Her cervix was closed and she had no active bleeding at that time. Her US did not show placenta previa. The patient was evaluated in room C4. A complete history and physical exam was performed. 1641: Signs stable. Labs show leukocytosis of 15.25. Ultrasound shows possible acute appendicitis. I rechecked the patient, and on reexamination she is still having RLQ pain to palpation. She will be given antibiotics and pain medication for her acute appendicitis. She is requesting to see [facility] to see if they will operate on her here. She works for them in the outpatient surgical center. 1734: I discussed the patient's case with Dr. Celestin [place] [facility] [place] 17[place]: I discussed the patient's case with Dr. Izaguirre - [facility] [place] He plans on operating on the patient tonight with Dr. Celestin on the admitting team. He will be in shortly. Dr. Celestin is currently at bedside. The patient will be evaluated for further management. 181: Dr. Celestin called back and said that based on gestational age, if there is any complication during surgery or any demise, there will be no acute intervention by OB. He states that he will discuss this with the patient and wants us to let general surgery know. We will contact Dr. Izaguirre. 1824: Dr. Izaguirre is at bedside and taking the patient to the OR. Consultations Consultation #1: I discussed the patient's case with Dr. Celestin [place] [facility] [place]: Dr. Celestin called back and said that based on the gestational age of the fetus, if there is any complication during surgery or any demise, there will be no acute intervention by OB. He states that he will discuss this with the patient and wants us to let general surgery know. Time: 17:34 Consultation #2: I discussed the patient's case with Dr. Izaguirre - [facility] [place] He plans on operating on the patient tonight with Dr. Celestin on the admitting team. Time: 17:43 Administered Medications Fentanyl Citrate (Fentanyl Citrate) 25 mcg IV Q5M PRN PRN Reason: PACU Use Only-Pain Stop: 09/04/19 23:50 Last Admin: 09/04/19 20:18 Dose: 25 mcg Documented by: [id number] Hydromorphone HCl (Dilaudid) 0.25 mg IV Q5M PRN PRN Reason: PACU Use Only-Pain Stop: 09/04/19 23:50 Last Admin: 09/04/19 20:32 Dose: 0.25 mg Documented by: [id number] Discontinued Medications Bupivacaine HCl/Epinephrine Bitart (Sensorcaine/Epinephrine 0.5% Mpf 1:200,000) Confirm Administered Dose 20 ml .ROUTE .STK-MED ONE Stop: 09/04/19 18:08 Last Admin: 09/04/19 19:26 Dose: 30 ml Documented by: [id number] Sodium Chloride (Nss 1000ml) 1,000 mls @ 999 mls/hr IV .Q1H1M RICARDO Stop: 09/04/19 16:15 Last Infusion: 09/04/19 16:25 Dose: 0 mls/hr Documented by: [id number] Admin: 09/04/19 15:25 Dose: 999 mls/hr Documented by: [id number] Acetaminophen (Ofirmev) 1,000 mg in 100 mls @ 400 mls/hr IV NOW STA Stop: 09/04/19 15:24 Last Infusion: 09/04/19 15:46 Dose: 0 mls/hr Documented by: [id number] Admin: 09/04/19 15:25 Dose: 400 mls/hr Documented by: [id number] Piperacillin Sod/Tazobactam Sod (Zosyn) 4.5 gm in 120 mls @ 30 mls/hr IV NOW ONE Stop: 09/04/19 20:41 Last Admin: 09/04/19 16:56 Dose: 30 mls/hr Documented by: [id number] Morphine Sulfate (Morphine Sulfate) 4 mg IV NOW STA Stop: 09/04/19 16:43 Last Admin: 09/04/19 16:56 Dose: 4 mg Documented by: [id number] Ondansetron HCl (Zofran) 4 mg IV NOW STA Stop: 09/04/19 15:11 Last Admin: 09/04/19 15:25 Dose: 4 mg Documented by: [id number] Medical Decision Making Medical Records Attestation: I reviewed the patient's medical records. Home Medications Current Medication List: was personally reviewed by me Laboratory Data Attestation: I reviewed the patient's lab results. Result diagrams: 09/04/19 15:11 09/04/19 15:11 Lab Results 09/04/19 09/04/19 09/04/19 Range/Units 15:11 15:11 15:11 WBC 15.25 H (4.8-10.8) K/uL RBC 4.62 (4.2-5.4) M/uL Hgb 14.2 (12.0-16.0) g/dL Hct 41.0 (37-47) % MCV 88.7 (80-100) fL MCH 30.7 (25-34) pg MCHC 34.6 (32-36) g/dL RDW Std Deviation 45.2 (36.4-46.3) fL RDW Coeff of Vasyl 13.9 (11.5-14.5) % Plt Count 236 (130-400) K/uL MPV 9.6 (7.4-10.4) fL Immature Gran % (Auto) 0.3 % Neut % (Auto) 84.6 % Lymph % (Auto) 7.4 % [place] % (Auto) 7.5 % Eos % (Auto) 0.1 % Baso % (Auto) 0.1 % Immature Gran # (Auto) 0.04 H (0.00-0.02) K/uL Neut # (Auto) 12.90 H (1.4-6.5) K/uL Lymph # (Auto) 1.13 L (1.2-3.4) K/uL [place] # (Auto) 1.15 H (0.11-0.59) K/uL Eos # (Auto) 0.02 (0-0.5) K/uL Baso # (Auto) 0.01 (0-0.2) K/uL Sodium 136 (136-145) mmol/L Potassium 3.6 (3.5-5.1) mmol/L Chloride 105 (98-107) mmol/L Carbon Dioxide 22 (21-32) mmol/L Anion Gap 9.0 (3-11) BUN 8 (7-18) mg/dl Creatinine 0.62 (0.6-1.2) mg/dl Est Cr Clr Drug Dosing 127.1 ml/min Est GFR ( Amer) 141.2 Est GFR (Non-Af Amer) 121.9 BUN/Creatinine Ratio 12.8 (10-20) Glucose 81 (70-99) mg/dl Calcium 9.0 (8.5-10.1) mg/dl Total Bilirubin 0.6 (0.2-1) mg/dl AST 13 L (15-37) U/L ALT 18 (12-78) U/L Alkaline Phosphatase 122 H (45-117) U/L Total Protein 7.9 (6.4-8.2) gm/dl Albumin 3.2 L (3.4-5.0) gm/dl Globulin 4.7 H (2.5-4.0) gm/dl Albumin/Globulin Ratio 0.7 L (0.9-2) Lipase 119 (73-393) U/L HCG, Quant mIU/ml Urine Color Urine Appearance (Clear) Urine pH (4.5-7.5) Ur Specific [place] (1.000-1.030) Urine Protein (Negative) Urine Glucose (UA) (Negative) Urine Ketones (Negative) Urine Blood (Negative) Urine Nitrite (Negative) Urine Bilirubin (Negative) Urine Urobilinogen (Negative) Ur Leukocyte Esterase (Negative) Blood Type A Positive 09/04/19 09/04/19 Range/Units 15:11 16:45 WBC (4.8-10.8) K/uL RBC (4.2-5.4) M/uL Hgb (12.0-16.0) g/dL Hct (37-47) % MCV (80-100) fL MCH (25-34) pg MCHC (32-36) g/dL RDW Std Deviation (36.4-46.3) fL RDW Coeff of Vasyl (11.5-14.5) % Plt Count (130-400) K/uL MPV (7.4-10.4) fL Immature Gran % (Auto) % Neut % (Auto) % Lymph % (Auto) % [place] % (Auto) % Eos % (Auto) % Baso % (Auto) % Immature Gran # (Auto) (0.00-0.02) K/uL Neut # (Auto) (1.4-6.5) K/uL Lymph # (Auto) (1.2-3.4) K/uL [place] # (Auto) (0.11-0.59) K/uL Eos # (Auto) (0-0.5) K/uL Baso # (Auto) (0-0.2) K/uL Sodium (136-145) mmol/L Potassium (3.5-5.1) mmol/L Chloride (98-107) mmol/L Carbon Dioxide (21-32) mmol/L Anion Gap (3-11) BUN (7-18) mg/dl Creatinine (0.6-1.2) mg/dl Est Cr Clr Drug Dosing ml/min Est GFR ( Amer) Est GFR (Non-Af Amer) BUN/Creatinine Ratio (10-20) Glucose (70-99) mg/dl Calcium (8.5-10.1) mg/dl Total Bilirubin (0.2-1) mg/dl AST (15-37) U/L ALT (12-78) U/L Alkaline Phosphatase (45-117) U/L Total Protein (6.4-8.2) gm/dl Albumin (3.4-5.0) gm/dl Globulin (2.5-4.0) gm/dl Albumin/Globulin Ratio (0.9-2) Lipase (73-393) U/L HCG, Quant 88808 mIU/ml Urine Color Yellow Urine Appearance Clear (Clear) Urine pH 6.5 (4.5-7.5) Ur Specific [place] 1.021 (1.000-1.030) Urine Protein Negative (Negative) Urine Glucose (UA) Negative (Negative) Urine Ketones 4+ H (Negative) Urine Blood Negative (Negative) Urine Nitrite Negative (Negative) Urine Bilirubin Negative (Negative) Urine Urobilinogen Negative (Negative) Ur Leukocyte Esterase Negative (Negative) Blood Type Imaging Data Radiologist's Impression: Radiology results as stated below per my review and the radiologist's interpretation: ULTRASOUND LIMITED FINDINGS: Real-time, grayscale, and color Doppler sonography of the fetus and gravid uterus is performed. There is a single live intrauterine gestation with an estimated heart rate of 154 beats per minute. The placenta is posterior and normal in appearance. The femoral length measures 3.95 cm, corresponding to an estimated age of 22 weeks 5 days. The amniotic fluid index measures 13.79 cm, with the largest pocket measuring 4.86 cm. There is trace free fluid in the right lower quadrant. There is a noncompressible blind-ending tubular structure in the right lower quadrant which corresponds to the site of pain. This measures up to 1.0 cm in diameter and is concerning for an abnormal appendix. There is no significant hyperemia seen on color imaging. IMPRESSION: 1. There is a single live intrauterine gestation with an estimated age of 22 weeks 5 days by femoral length measurement. 2. Note that this does not constitute a dedicated anatomic scan. 3. Right lower quadrant abnormality is above, with sonographic features concerning for acute appendicitis. If there is clinical concern for acute appendicitis an abdominal CT should be considered for further assessment. Electronically signed by: Acosta Danielson M.D. 09/04/2019 4:18 PM Blood Pressure Blood Pressure Findings: Normal blood pressure Blood Pressure Disposition: did not require urgent referral [facility] Narrative 1503: Per review of EMR, the patient is G1 with a history of 1 spontaneous . She was last seen in her OB office on 08/21, and the fetus had a VSD at that time. She was seen for bright red bleeding. Her cervix was closed and she had no active bleeding at that time. Her US did not show placenta previa. The patient was evaluated in room C4. A complete history and physical exam was performed. 1642: Signs stable. Labs show leukocytosis of 15.25. Ultrasound shows possible acute appendicitis. I rechecked the patient, and on reexamination she is still having RLQ pain to palpation. She will be given antibiotics and pain medication for her acute appendicitis. She is requesting to see [facility] to see if they will operate on her here. She works for them in the outpatient surgical center. 1734: I discussed the patient's case with Dr. Celestin - [facility]. 1743: I discussed the patient's case with Dr. Izaguirre - [place] [facility] [place] He plans on operating on the patient tonight with Dr. Celestin on the admitting team. He will be in shortly. Dr. Celestin is currently at bedside. The patient will be evaluated for further management. 1815: Dr. Celestin called back and said that based on gestational age, if there is any complication during surgery or any demise, there will be no acute intervention by OB. He states that he will discuss this with the patient and wants us to let general surgery know. We will contact Dr. Izaguirre. 1824: Dr. Izaguirre is at bedside and taking the patient to the OR. Impression & Plan Acute appendicitis Discharge Plan Visit Data *Final* Discharge Date/Time: 09/04/19 18:24 Chief Complaint: Abdominal Pain Stated Complaint: CRAMPING [address] [facility]ITCHIE SAID ER ED Provider: Jett Schaffer Discharge Problem: Acute appendicitis Patient Disposition: Still a Patient Discharge Instructions Interventions: ED Discharge Assessment Last Done: 09/04/19 18:24 Discharge Problem: Acute appendicitis Qualifiers: Acute appendicitis type: unspecified acute appendicitis type Qualified Code(s): K35.80 - Unspecified acute appendicitis The scribe's documentation has been prepared under my direction and personally reviewed by me in its entirety. I confirm that the note above accurately reflects all work, treatment, procedures, and medical decision making performed by me.
[2019-09-04] MEDS ORDERED: HYDROmorphone INJ 0.5 MG/0.5 ML SYR IV PRN (21:21)
[2019-09-04] MEDS ORDERED: ACETAMINOPHEN 1,000 MG/100 ML VIAL IV PRN (21:21)
[2019-09-04] MEDS: PIPERACILLIN/TAZOBACTAM 3.375 GM in DEXTROSE 5% 100 ML IV SCH (22:55)
--- NOTE | 2019-09-04 23:45 | History and Physical Report ---
DATE OF ADMISSION: 09/04/2019 REASON FOR ADMISSION: Surgery and recovery with acute appendicitis. BRIEF HISTORY: Chinyere is a 29-year-old G3, P1-0-1-1 who is currently at 21 weeks 6 days gestational age, presented to the Emergency Department for abdominal pain. At her evaluation in the Emergency Department, the patient was noted to have acute appendicitis based on imaging with normal heart rate and normal-appearing fetus on ultrasound. [facility] and the plan was to proceed with an appendectomy. The patient being at nearly 22 weeks. It was requested that the patient be admitted to obstetrics during her hospital stay and recovery. The patient is denying regular contractions, vaginal bleeding, leakage of fluid, and reporting normal movement. The patient reports that her course has been relatively uncomplicated. COURSE: The patient presented for care at approximately 10 weeks gestational age, been normotensive throughout. No complications to date. PAST MEDICAL HISTORY: Maternal VSD. PAST SURGICAL HISTORY: [place] tooth extraction and LEEP procedure. CURRENT MEDICATIONS: 1. vitamins. 2. Colace. 3. Famotidine. ALLERGIES: The patient denies any known drug allergies. PHYSICAL EXAMINATION: VITAL SIGNS: Blood pressure 117/68, heart rate 94, temperature 36.8. GENERAL: The patient was in notable pain but no acute distress, alert and oriented x3. Exam by the ED was otherwise unremarkable. ABDOMEN: Noted otherwise as per Emergency Department evaluation. heart rate was obtained via ultrasound and appeared normal. ASSESSMENT AND PLAN: Chinyere is a 29-year-old G3, P1-0-1-1, currently at 21 weeks 6 days gestational age, admitted for acute appendicitis. General surgery is planning to proceed with an appendectomy. We discussed the slight increased risk of labor and loss due to the acute appendicitis as well as the procedure. We discussed that the is previable and discussed that no intervention for the fetus would be performed during the OR procedure. The plan was for Zosyn for antibiotics preop and postop. We will admit the patient and await the guidance of general surgery for care of the acute appendicitis including postoperative care. We will obtain heart tones following the procedure as well as q. shift while in house.
[2019-09-05] MEDS: PIPERACILLIN/TAZOBACTAM 3.375 GM in DEXTROSE 5% 100 ML IV SCH (06:24)
[2019-09-05] MEDS ORDERED: ACETAMINOPHEN 325 MG TAB PO PRN (07:36)
--- NOTE | 2019-09-05 07:40 | Surgery Progress Note ---
Date of Service September 05, 2019 Assessment & Plan (1) Acute appendicitis: POD#1 laparoscopic appendectomy patient doing well, some expected incisional pain, otherwise managed does not wish to take narcotics for pain, tylenol ordered okay to advance diet as tolerated patient on OB service, will see if they wish to obtain heart tones or anything further prior to discharge will leave instructions for patient to follow up in clinic within 1-[address] Izaguirre Subjective Patient doing well this AM. Some incisional pain, but is manageable. Denies n/v. Tolerating clears without issues. Hoping to be discharged to home. Physical Exam Physical Exam: awake/alert Respiratory: normal respiratory effort Gastrointestinal (Abdomen): Inspection/Auscultation: + abdominal surgical incision (c/d/i); abdomen not distended Percussion/Palpation: abdomen soft Results & Data Vital Signs (Past 12 Hours) Vital Signs Temp Pulse Resp BP Pulse Ox 09/05/19 04:00 36.8 C 93 H 18 96/51 L 95 09/05/19 00:30 36.7 C 80 18 105/51 L 95 09/04/19 23:30 36.7 C 87 18 105/58 L 95 09/04/19 22:30 36.6 C 77 18 114/63 94 09/04/19 22:00 36.6 C 84 18 119/62 95 09/04/19 21:30 36.6 C 80 18 101/51 L 96 09/04/19 21:15 36.8 C 99 H 18 100/58 L 95 09/04/19 20:50 37.4 C 92 H 22 120/64 94 09/04/19 20:40 37.4 C 90 18 111/65 95 09/04/19 20:30 85 20 114/70 95 09/04/19 20:20 88 16 129/74 100 09/04/19 20:10 89 20 124/66 94 09/04/19 19:58 36.9 C 101 H 20 119/66 100 PG Care Time/CCT Total # of Minutes Spent Total Time Spent with Patient: Total time spent is greater than 50% in coordination of care (as documented) at patient's floor/unit and/or counseling patient: Coding Level of Care Code None Diagnoses Acute appendicitis K35.80 Acute appendicitis type: unspecified acute appendicitis type (1) Acute appendicitis Acute appendicitis type: unspecified acute appendicitis type Qualified Code(s): K35.80 - Unspecified acute appendicitis
--- NOTE | 2019-09-05 08:27 | Obstetrical Progress Note ---
Date of Service September 05, 2019 Assessment & Plan (1) Acute appendicitis: 29yo at 22.0 weeks GA. day 1 s/p laparoscopic appendectomy. Doing well. Stable for discharge per Gen surg. - Follow up for routine care. (2) Supervision of normal intrauterine in multigravida: Subjective Post op day 1 from laparoscopic appendectomy. Patient recovering well. FHR normal this am. stable for discharge per Gen Surgery Physical Exam Gastrointestinal (Abdomen): Percussion/Palpation: + abdomen tender and abdomen soft; no guarding and abdomen not rigid Genitourinary: OB Exam Monitor Tracing: + external FHT monitor used (Normal) Results & Data Vital Signs (Past 12 Hours) Vital Signs Temp Pulse Resp BP Pulse Ox 09/05/19 04:00 36.8 C 93 H 18 96/51 L 95 09/05/19 00:30 36.7 C 80 18 105/51 L 95 09/04/19 23:30 36.7 C 87 18 105/58 L 95 09/04/19 22:30 36.6 C 77 18 114/63 94 09/04/19 22:00 36.6 C 84 18 119/62 95 09/04/19 21:30 36.6 C 80 18 101/51 L 96 09/04/19 21:15 36.8 C 99 H 18 100/58 L 95 09/04/19 20:50 37.4 C 92 H 22 120/64 94 09/04/19 20:40 37.4 C 90 18 111/65 95 09/04/19 20:30 85 20 114/70 95 09/04/19 20:20 88 16 129/74 100 09/04/19 20:10 89 20 124/66 94 09/04/19 19:58 36.9 C 101 H 20 119/66 100 PG Care Time/CCT Total # of Minutes Spent Total Time Spent with Patient: Total time spent is greater than 50% in coordination of care (as documented) at patient's floor/unit and/or counseling patient: Coding Level of Care Code 71726 Subseq Hosp Care Lvl 2 Diagnoses Acute appendicitis K35.80 Acute appendicitis type: unspecified acute appendicitis type Supervision of normal intrauterine in multigravida Z34.80 Time Spent (min) 10 (1) Acute appendicitis Acute appendicitis type: unspecified acute appendicitis type Qualified Code(s): K35.80 - Unspecified acute appendicitis
--- NOTE | 2019-09-05 08:41 | Anesthesiology Progress Note ---
Date of Service September 05, 2019 Anesthesia Post Procedure Vital Signs Vital Signs: Temp Pulse Pulse Pulse Pulse Resp BP 09/05/19 07:30 36.7 C 82 18 09/05/19 04:00 36.8 C 93 H 18 09/05/19 00:30 36.7 C 80 18 09/04/19 23:30 36.7 C 87 18 09/04/19 22:30 36.6 C 77 18 09/04/19 22:00 36.6 C 84 18 09/04/19 21:30 36.6 C 80 18 09/04/19 21:15 36.8 C 99 H 18 09/04/19 20:50 37.4 C 92 H 22 09/04/19 20:40 37.4 C 90 18 09/04/19 20:30 85 20 09/04/19 20:20 88 16 09/04/19 20:10 89 20 09/04/19 19:58 36.9 C 101 H 20 09/04/19 18:23 80 16 09/04/19 17:19 93 H 19 09/04/19 17:00 94 H 22 117/68 09/04/19 16:24 83 17 09/04/19 14:43 36.8 C 89 22 115/73 BP Pulse Ox 09/05/19 07:30 94/50 L 99 09/05/19 04:00 96/51 L 95 09/05/19 00:30 105/51 L 95 09/04/19 23:30 105/58 L 95 09/04/19 22:30 114/63 94 09/04/19 22:00 119/62 95 09/04/19 21:30 101/51 L 96 09/04/19 21:15 100/58 L 95 09/04/19 20:50 120/64 94 09/04/19 20:40 111/65 95 09/04/19 20:30 114/70 95 09/04/19 20:20 129/74 100 09/04/19 20:10 124/66 94 09/04/19 19:58 119/66 100 09/04/19 18:23 114/71 99 09/04/19 17:19 97 09/04/19 17:00 97 09/04/19 16:24 111/69 99 09/04/19 14:43 98 Pain Intensity Lower Abdomen: Pain Intensity: 5 Notes Mental Status: alert / awake / arousable and participated in evaluation Nausea / Vomiting: adequately controlled Pain: adequately controlled Airway Patency, RR, SpO2: stable & adequate BP & HR: stable & adequate Hydration State: stable & adequate
[2019-09-05] MEDS ORDERED: PRENATAL VITAMIN 1 TAB PO SCH (09:00)
[2019-09-05] MEDS ORDERED: FAMOTIDINE 20 MG TAB PO SCH (09:00)
[2019-09-05] MEDS ORDERED: DOCUSATE SODIUM 100 MG CAP PO SCH (09:00)
== END 2019-09-05 11:04 | disposition home or self-care (01) | DRG 818 ==
LOC: ED 14:31 → OR 18:24 → 4N 18:25

== ENCOUNTER 2020-01-04 15:27 | Inpatient (IN) ==
[2020-01-05] MEDS ORDERED: OXYTOCIN 30 UNITS/500 ML BAG IV PRN ×3 (10:46→16:40)
--- NOTE | 2020-01-05 11:02 | History & Physical Report ---
Date of Service January 05, 2020 Assessment & Plan (1) Encounter for elective induction of labor: (2) 39 weeks gestation of : admit, labs, iv, plan pitocin. fhts categ 1. pt agrees to elective induction of labor, her choice. will ultimately want epidural for pain management. Admission and Anticipated Discharge Date Admission Date: January 05, 2020 History of Present Illness Chief Complaint: elective induction Primary Care Provider: Randall Lucio MD 29yo at 39+wks ega presents to L&D with above cc. Was asked by partner yesterday if I would agree to elective induction. Apparently what patient desires. No rom, no vb. +FM. No ctx PNC c/b 1. patient with VSD, echo wnl 2. H/o appy at 22wks 3. GDM, diet controlled. PNL rh pos, ri, gbs neg OBH: x 1, sab x 1 GYNH: nl paps, no stds Allergies Allergy/AdvReac Type Severity Reaction Status Date / Time No Known Allergies Allergy Verified 01/05/20 10:36 Home Medications Home Medications Medication Instructions Recorded Confirmed Type docusate sodium 100 mg PO DAILY 01/05/20 01/05/20 History famotidine [Pepcid] 40 mg PO BID 01/05/20 01/05/20 History vit no.[id number] 1 tab PO DAILY 01/05/20 01/05/20 History [ Vitamin] Patient History Medical History (Updated 01/05/20 @ 11:06 by Michelle Elder MD, FACOG) Depression Prior miscarriage with , antepartum VSD (ventricular septal defect and aortic arch hypoplasia Surgical History (Updated 01/05/20 @ 11:04 by Michelle Elder MD, FACOG) S/P appendectomy S/P loop electrosurgical excision procedure S/P wisdom tooth extraction Social History (Updated 06/14/19 @ 15:09 by Aggie Robbins) Preferred Language: [place] Communication Ability: Effective Visual Impairment: Limited Acid Treater Required: No Beliefs That Will Affect Care: None marital status: Single marital status details: suraj Edwards (28) [phone] Current Living Situation: Family Current Living Situation Comment: lives with fob & son, dog current occupational status: employed current occupation: [employer] Other Information That Helps Us Care for You: No Feels Safe at Home: Yes Safety Concerns: Feels Safe At This Time Smoking Status: Never smoker Second Hand Exposure: No ; Hx Alcohol Use: No Hx Substance Use: No Physical Exam Constitutional: WD/WN, vitals as above Gastrointestinal (Abdomen): Percussion/Palpation: abdomen soft (gravid); abdomen nontender Musculoskeletal: no edema Neurologic: grossly normal Psychiatric: A+Ox3, euthymic affect Genitourinary: OB Exam Abdomen: + estimated weight (7-8#) Manual OB Exam: + cervical dilation (4), + cervical effacement 60%, + station -2 and + amniotic fluid clear OB Exam Monitor Tracing: + external FHT monitor used (125 mod variability), + external uterine monitor used (irreg), + category I and + normal FHT variability Results & Data ([place]) Vital Signs (Past 12 Hours) Vital Signs Temp Pulse Resp BP 01/05/20 10:50 93 H 118/74 01/05/20 10:42 98.1 F 16 Coding Level of Care Code None Diagnoses Encounter for elective induction of labor Z34.90 39 weeks gestation of Z3A.39
[2020-01-05 11:11] LABS: Hematocrit (blood only) 39.5 % (37-47); Hemoglobin 13.3 g/dL (12.0-16.0); Mean Corpuscular Volume 89.2 fL (80-100); Mean Platelet Volume 10.1 fL (7.4-10.4); Platelet Count 203 K/uL (130-400); RDW Coefficient of Variation 14.4 % (11.5-14.5); RDW Standard Deviation 47.1 fL (36.4-46.3); Red Blood Count 4.43 M/uL (4.2-5.4); White Blood Count 9.39 K/uL (4.8-10.8)
[2020-01-05 11:13] LABS: Mean Corpuscular Hgb Conc 33.7 g/dL (32-36)
[2020-01-05] MEDS: LACTATED RINGER'S 1,000 ML IV PRN ×2 (11:34→12:59)
[2020-01-05] MEDS ORDERED: BUPIVACAINE 0.25% 30 ML VIAL ONE (12:30)
[2020-01-05] MEDS ORDERED: ePHEDrine sulfate 50 MG/ML AMP ONE (12:30)
[2020-01-05] MEDS ORDERED: fentaNYL citrate 100 MCG/2 ML VIAL ONE (12:31)
[2020-01-05] MEDS ORDERED: fentaNYL 2MCG/ML ROPIV 1.25MG/ML 100 ML BAG EPI ONE (12:31)
[2020-01-05] MEDS ORDERED: DiphenhydrAMINE HCL 50 MG/ML VIAL IV PRN (12:36)
[2020-01-05] MEDS ORDERED: ePHEDrine sulfate 50 MG/ML AMP IV PRN (12:36)
[2020-01-05] MEDS ORDERED: NALBUPHINE HCL INJ 10 MG/ML AMP IV PRN (12:36)
[2020-01-05] MEDS ORDERED: ONDANSETRON INJ 2 MG/ML 2 ML VIAL IV PRN (12:36)
[2020-01-05] MEDS ORDERED: NALOXONE HCL 1 MG in SODIUM CHLORIDE 0.9% 1000ML 1,000 ML IV PRN (12:36)
[2020-01-05] MEDS ORDERED: fentaNYL 2MCG/ML ROPIV 1.25MG/ML 100 ML BAG EPI PRN (12:36)
[2020-01-05] MEDS ORDERED: NALOXONE HCL 0.4 MG/1 ML VIAL/CARP IV PRN (12:36)
--- NOTE | 2020-01-05 12:37 | Anesthesiology Consultation ---
Date of Service January 05, 2020 Assessment & Plan Chart Review Chart Review: Patient NOT seen in Pre Admission Testing and Acceptable Risk for Labor Epidural Consults Requested none ASA ASA2 Proposed Anesthesia Anesthesia Type: Labor Epidural and CSE Risk / Benefits Reviewed With: PT / POA / Parent / Guardian, Accepts Plan and Informed Consent Obtained History Height/Weight Height: 5 ft 2 in Weight: 81.647 kg Allergies Allergy/AdvReac Type Severity Reaction Status Date / Time No Known Allergies Allergy Verified 01/05/20 10:36 Medications Home Medications Medication Instructions Recorded Confirmed Last Taken docusate sodium 100 mg PO DAILY 01/05/20 01/05/20 01/04/20 famotidine [Pepcid] 40 mg PO BID 01/05/20 01/05/20 01/05/20 vit no.[id number] 1 tab PO DAILY 01/05/20 01/05/20 01/05/20 [ Vitamin] Active Medications Generic Name Dose Route Start Last Admin Trade Name Freq PRN Reason Stop Dose Admin Lactated Ringer's 1,000 mls @ 125 mls/hr 01/05/20 10:46 01/05/20 12:16 Lr IV 01/07/20 10:45 999 mls/hr .Q8H PRN Infusion L&D Protocol Protocol Oxytocin 30 units in 500 mls @ 1 mls/hr 01/05/20 10:46 01/05/20 11:38 Pitocin IV 01/07/20 10:45 0.06 units/hr .Q24H PRN 1 mls/hr Labor Induction/Augmentation Administration Protocol 0.06 UNITS/HR NPO Date Last Intake of Fluids: 01/05/20 Time Last Intake of Fluids: 12:20 Date Last Intake of Solids: 01/05/20 Time Last Intake of Solids: 07:30 Past Medical History Medical History Depression Prior miscarriage with , antepartum VSD (ventricular septal defect and aortic arch hypoplasia Exercise / Class Metabolic Activity II 4-5 Yardwork/Stairs/Walk up hill Past Surgical History Surgical History S/P appendectomy S/P loop electrosurgical excision procedure S/P wisdom tooth extraction Past Anesthesia History No Hx of Anesthesia Complications and No Family Hx of Anesthesia Complications History of PONV No Hx of PONV and No Hx of Motion Sickness Social History Smoking Status: Never smoker Hx Alcohol Use: No Hx Substance Use: No Review of Systems no chest pain or sob Physical Exam Vital Signs Last Vital Signs Temp 36.7 C 01/05/20 10:42 Pulse 88 01/05/20 12:31 Resp 16 01/05/20 10:42 BP 118/74 01/05/20 10:50 Pulse Ox 97 01/05/20 12:31 ENMT Mouth: no TMJ abnormality Thyromental Distance: > or= 3.5 Finger Breadths Mallampati Class: II Neck normal visual inspection Respiratory normal respiratory effort Auscultation: lungs clear to auscultation bilaterally Cardiovascular Rate/Rhythm: regular rate and regular rhythm Musculoskeletal Spine: normal cervical ROM Neurologic moves all extremities Psychiatric Orientation: alert and oriented x 3 Testing Laboratory Results 01/05/20 10:54
--- NOTE | 2020-01-05 12:38 | Labor Progress Brief Note ---
Date of Service January 05, 2020 Assessment & Plan Admission and Anticipated Discharge Date Admission Date: January 05, 2020 Results & Data ([facility]) Vital Signs (Past 12 Hours) Vital Signs Temp Pulse Resp BP Pulse Ox 01/05/20 12:31 88 97 01/05/20 10:50 93 H 118/74 01/05/20 10:42 98.1 F 16 Coding
--- NOTE | 2020-01-05 13:40 | Delivery Summary ---
Vaginal Delivery Summary Date of Service January 05, 2020 The patient dilated to complete and pushed to deliver a viable female infant Apgars 8 and 9 via over intact perineum. Mouth and nose bulb suctioned at perineum. Shoulders and body delivered with ease. Infant was vigorous and crying at . Cord clamped at 30 seconds of life and infant to maternal abdomen where the cord was then doubly clamped and cut. Placenta delivered spontaneously and intact, three-vessel cord. Hemostasis achieved with dilute pitocin and uterine massage. Cervix and sulci intact. EBL 300 cc. Mother and baby stable recovery. [facility] [place]ag[place] Delivery Charge Vaginal Delivery Codes: 65367 global code for the antepartum, delivery, and post-
[2020-01-05] MEDS ORDERED: OXYTOCIN 20 UNITS in LACTATED RINGER'S 1,000 ML IV SCH (14:00)
--- NOTE | 2020-01-05 15:16 | Anesthesia Procedure Note ---
Date of Service January 05, 2020 Anesthesia Post Epidural Note Vital Signs Vital Signs: Temp Pulse Resp BP Pulse Ox 36.9 C 82 16 120/75 95 01/05/20 14:45 01/05/20 15:14 01/05/20 14:45 01/05/20 15:14 01/05/20 13:56 Pain Intensity Abdomen: Pain Intensity: 1 Notes Mental Status: alert / awake / arousable and participated in evaluation Nausea / Vomiting: adequately controlled Pain: adequately controlled Airway Patency, RR, SpO2: stable & adequate BP & HR: stable & adequate Hydration State: stable & adequate Neuraxial Anesthesia: was administered and sensory block is resolving Anesthetic Complications: no major complications apparent and Pt Satisfied with anesthetic care Epidural: Removed without complications and With tip intact
[2020-01-05] MEDS ORDERED: bisacodyL 10 MG SUPP PR PRN (16:40)
[2020-01-05] MEDS ORDERED: SUPERCREAM 0.870% 15 GM JAR EXT PRN (16:40)
[2020-01-05] MEDS ORDERED: BENZOCAINE 20% AER SPR 82.5 GM CAN EXT PRN (16:40)
[2020-01-05] MEDS ORDERED: HYDROCORTISONE ACETATE 25 MG SUPP PR PRN (16:40)
[2020-01-05] MEDS ORDERED: DIPHTHERIA/TETANUS/PERTUSSIS 0.5 ML SYR/VIAL IM ONE (16:40)
[2020-01-05] MEDS ORDERED: IBUPROFEN 600 MG TAB PO ONE (16:43)
[2020-01-05] MEDS: DOCUSATE SODIUM 100 MG CAP PO SCH (20:43)
[2020-01-05] MEDS: IBUPROFEN 600 MG TAB PO PRN ×2 (20:45→20:46)
[2020-01-06] MEDS: ACETAMINOPHEN 325 MG TAB PO PRN ×2 (01:08→14:26)
[2020-01-06] MEDS: IBUPROFEN 600 MG TAB PO PRN ×2 (04:54→11:37)
[2020-01-06 06:20] LABS: Hematocrit (blood only) 39.6 % (37-47); Hemoglobin 13.2 g/dL (12.0-16.0); Mean Corpuscular Hemoglobin 29.9 pg (25-34); Mean Corpuscular Hgb Conc 33.3 g/dL (32-36); Mean Corpuscular Volume 89.6 fL (80-100); Mean Platelet Volume 10.5 fL (7.4-10.4); Platelet Count 181 K/uL (130-400); RDW Coefficient of Variation 14.3 % (11.5-14.5); Red Blood Count 4.42 M/uL (4.2-5.4); White Blood Count 9.79 K/uL (4.8-10.8)
--- NOTE | 2020-01-06 06:34 | Obstetrical Progress Note ---
Date of Service January 06, 2020 Assessment & Plan (1) care and examination: stable, routine pp care. d/c home per her wishes. instructions reviewed. plan 6wk pp check. breast, rubella immune, rh pos. Day #:: 1 Subjective Ambulation: ambulating normally Voiding: no voiding problems Diet Tolerance:: regular diet Lochia:: Small Feeding Type:: breast feeding doing well, desires d/c home today Physical Exam Constitutional WD/WN, vitals as above Respiratory normal respiratory effort, lungs clear to auscultation Cardiovascular Rate/Rhythm: regular rate and regular rhythm Gastrointestinal (Abdomen) Inspection/Auscultation: abdomen normal to inspection Percussion/Palpation: abdomen soft Fundus firm 2cm down Musculoskeletal nt calves no edema Neurologic grossly normal Psychiatric A+Ox3, euthymic affect Results & Data ([facility]) Vital Signs (Past 12 Hours) Vital Signs Temp Pulse Resp BP Pulse Ox 01/06/20 04:45 98.4 F 82 20 103/65 96 01/06/20 00:13 98.4 F 82 20 103/65 96 01/05/20 20:00 98.2 F 70 20 112/70 97
[2020-01-06] MEDS ORDERED: PRENATAL VITAMIN 1 TAB PO SCH (08:00)
[2020-01-06] MEDS: DOCUSATE SODIUM 100 MG CAP PO SCH (09:19)
== END 2020-01-06 15:45 | disposition home or self-care (01) | DRG 807 ==
LOC: 4S1 01-05 10:33 → 4S2 01-05 16:20

== ENCOUNTER 2021-08-19 20:32 | Inpatient (IN) ==
[2021-08-19] MEDS ORDERED: OXYTOCIN 30 UNITS/500 ML BAG IV PRN (21:07)
--- NOTE | 2021-08-19 21:10 | History & Physical Report ---
Date of Service August 19, 2021 Assessment & Plan (1) with 38 completed weeks gestation: (2) Diet controlled gestational diabetes mellitus (GDM), antepartum: (3) Normal labor: Plan: admit and expectantly manage. gbs neg. fetus overall category 2. Check hourly blood sugar. Anticipate . History of Present Illness Chief Complaint: contractions Primary Care Provider: Randall Lucio MD Patient is a [id number] with iup at 38 0/7 weeks who presents to labor and delivery complaining of contractions. no lof/vb. Notes has rapid labors, last labor was 3hrs and told to call when q 10 min contractions. Last AC in 87%. and Delivery Plans GDM in prior *Begin monthly AC Us's @24wks Maternal VSD *plan echo - Normal fECHO Depression *started celexa at nob. OB Labs: Blood Type A Positive 01/22/21 Antibody Screen NEGATIVE 01/22/21 Hemoglobin 12.2 g/dL (12.0-16.0) 06/11/21 Hematocrit 36.2 % (37-47) L 06/11/21 Mean Corpuscular Volume 90.6 fL (80-100) 01/22/21 Platelet Count 252 K/uL (130-400) 01/22/21 Rubella IgG Antibody Immune (Immune) 01/22/21 Rapid Plasma Reagin Nonreactive (Nonreactive) 01/22/21 Hepatitis B Surface Antigen Neg (Neg) 01/22/21 HIV (1&2) Ab and P24 Ag, 4th Gener Neg (Neg) 01/22/21 Glucose 1 Hour 50 gm Load 165 mg/dl (70-130) H 10/12/19 OB Optional Labs: Chlamydia trachomatis RNA NOT DETECTED (NOT DETECTED) 01/22/21 Neisseria gonorrhoeae RNA NOT DETECTED (NOT DETECTED) 01/22/21 Declined QUAD Panorama declined. cf/sma declined 28 week 2 hr gtt-72/182/162 gbs neg Allergies Allergy/AdvReac Type Severity Reaction Status Date / Time No Known Allergies Allergy Verified 08/13/21 15:12 Home Medications Medication Instructions Recorded Confirmed Type vits no.124-ferrous fum 1 tab PO DAILY 01/05/20 08/16/21 History 27 mg iron-folic acid 800 mcg tablet ( Vitamin) acetone (urine) test (Ketone Urine #50 ea 02/07/21 08/13/21 Rx Test) blood sugar diagnostic (OneTouch #150 ea 02/07/21 08/13/21 Rx Verio test strips) blood-glucose meter (OneTouch #1 ea 02/07/21 08/13/21 Rx Verio Flex meter) lancets 33 gauge (OneTouch Delica #150 ea 02/07/21 08/13/21 Rx Plus Lancet) citalopram 20 mg tablet (Celexa) 20 mg PO DAILY #30 tab 04/16/21 08/16/21 Rx Patient History Medical History (Updated 08/19/21 @ 21:17 by Ellen Hurley MD, FACOG) Depression Prior miscarriage with , antepartum VSD (ventricular septal defect and aortic arch hypoplasia Surgical History S/P appendectomy S/P loop electrosurgical excision procedure S/P wisdom tooth extraction Family History Mother Hypertension Grandmother (Maternal) Colorectal cancer Other Diabetes Social History Smoking Status: Never smoker Second Hand Exposure: No; Hx Alcohol Use: No Hx Substance Use: No Preferred Language: Sami Communication Ability: Effective Visual Impairment: Limited Enterprise Resource Planner Required: No Beliefs That Will Affect Care: None marital status: Single marital status details: suraj Edwards (29) [phone] Current Living Situation: Family Current Living Situation Comment: lives with fob & children, 1 dog. current occupational status: employed current occupation: [employer] Feels Safe at Home: Yes Assistive Devices: None OB History Past Pregnancies Del. Date GA wks Lbr Lgth wt Sex Type del Anes Place Del Prov ? Comment 02/15/17 37 6 7-8 M Epidu ral [facility] No 01/03/19 Aborted-Spontaneous 01/05/20 39 7lb 15oz F Epid ural [facility] Elder No GDM diet controlled [facility] History noncontributory Physical Exam Constitutional: WD/WN, vitals as above Gastrointestinal (Abdomen): soft , gravid, nt Psychiatric: A+Ox3, euthymic affect Genitourinary: cx--/80/-2 per nursing, was 3 in the office on 08/13. toco--q3-6min efm--150s with mod variabiltiy, accels present, rare variable Results & Data ([facility]) Vital Signs (Past 12 Hours) Vital Signs Temp Pulse Resp BP 08/19/21 20:47 86 112/71 08/19/21 20:45 36.5 C 18 Coding Level of Care Code None Diagnoses with 38 completed weeks gestation Z3A.38 Diet controlled gestational diabetes mellitus (GDM), antepartum O24.410 Normal labor O80; Z37.9
[2021-08-19] MEDS: LACTATED RINGER'S 1,000 ML IV PRN ×2 (21:30→22:35)
[2021-08-19 21:32] LABS: Hematocrit (blood only) 39.1 % (37-47); Mean Corpuscular Hemoglobin 29.6 pg (25-34); Mean Corpuscular Hgb Conc 33.2 g/dL (32-36); Mean Corpuscular Volume 89.1 fL (80-100); Mean Platelet Volume 10.4 fL (7.4-10.4); Platelet Count 214 K/uL (130-400); RDW Coefficient of Variation 14.3 % (11.5-14.5); RDW Standard Deviation 46.7 fL (36.4-46.3); Red Blood Count 4.39 M/uL (4.2-5.4); White Blood Count 12.65 K/uL (4.8-10.8)
[2021-08-19] MEDS ORDERED: ePHEDrine sulfate 50 MG/ML AMP ONE (22:13)
[2021-08-19] MEDS ORDERED: BUPIVACAINE 0.25% 30 ML VIAL ONE (22:13)
[2021-08-19] MEDS ORDERED: SODIUM CHLORIDE 0.9% INJ 10 ML VIAL ONE (22:13)
[2021-08-19] MEDS ORDERED: fentaNYL citrate 100 MCG/2 ML VIAL ONE (22:13)
[2021-08-19] MEDS ORDERED: fentaNYL 2MCG/ML ROPIVACAINE 1.25MG/ML 100 ML BAG EPI ONE (22:13)
[2021-08-19] MEDS ORDERED: NALOXONE HCL 0.4 MG/1 ML VIAL/CARP IV PRN (22:39)
[2021-08-19] MEDS ORDERED: NALOXONE HCL 1 MG in SODIUM CHLORIDE 0.9% 1000ML 1,000 ML IV PRN (22:39)
[2021-08-19] MEDS ORDERED: ePHEDrine sulfate 50 MG/ML AMP IV PRN (22:39)
[2021-08-19] MEDS ORDERED: diphenhydrAMINE 50 MG/ML VIAL IV PRN (22:39)
[2021-08-19] MEDS ORDERED: fentaNYL 2MCG/ML ROPIVACAINE 1.25MG/ML 100 ML BAG EPI PRN (22:39)
[2021-08-19] MEDS ORDERED: NALBUPHINE HCL INJ 10 MG/ML AMP IV PRN (22:39)
--- NOTE | 2021-08-19 22:39 | Anesthesiology Consultation ---
Date of Service August 19, 2021 Assessment & Plan Chart Review Chart Review: Acceptable Risk for Surgery and Patient NOT seen in Pre Admission Testing Consults Requested none ASA ASA2 Proposed Anesthesia Anesthesia Type: Labor Epidural Risk / Benefits Reviewed With: PT / POA / Parent / Guardian, Accepts Plan and Informed Consent Obtained History Height/Weight Height: 5 ft 2 in Weight: 83.915 kg Allergies Allergy/AdvReac Type Severity Reaction Status Date / Time No Known Allergies Allergy Verified 08/13/21 15:12 Medications Home Medications Medication Instructions Recorded Confirmed Last Taken vits no.124-ferrous fum 1 tab PO DAILY 01/05/20 08/16/21 01/05/20 27 mg iron-folic acid 800 mcg tablet ( Vitamin) acetone (urine) test (Ketone Urine #50 ea 02/07/21 08/13/21 Unknown Test) blood sugar diagnostic (OneTouch #150 ea 02/07/21 08/13/21 Unknown Verio test strips) blood-glucose meter (OneTouch #1 ea 02/07/21 08/13/21 Unknown Verio Flex meter) lancets 33 gauge (OneTouch Delica #150 ea 02/07/21 08/13/21 Unknown Plus Lancet) citalopram 20 mg tablet (Celexa) 20 mg PO DAILY #30 tab 04/16/21 08/16/21 08/16/21 0800 Active Medications Generic Name Dose Route Start Last Admin Trade Name Freq PRN Reason Stop Dose Admin Lactated Ringer's 1,000 mls @ 125 mls/hr 08/19/21 21:07 08/19/21 22:35 Lr IV 08/21/21 21:06 125 mls/hr .Q8H PRN Administration L&D Protocol Protocol Past Medical History Medical History (Updated 08/19/21 @ 21:17 by Ellen Hurley MD, FACOG) Depression Prior miscarriage with , antepartum VSD (ventricular septal defect and aortic arch hypoplasia Exercise / Class Metabolic Activity II 4-5 Yardwork/Stairs/Walk up hill Past Family History Family History Mother Hypertension Grandmother (Maternal) Colorectal cancer Other Diabetes Past Surgical History Surgical History S/P appendectomy S/P loop electrosurgical excision procedure S/P wisdom tooth extraction Past Anesthesia History No Hx of Anesthesia Complications and No Family Hx of Anesthesia Complications History of PONV No Hx of PONV and No Hx of Motion Sickness Social History Smoking Status: Never smoker Do You Dip or Chew Tobacco: No Hx Alcohol Use: No Hx Substance Use: No substance use type: does not use Physical Exam Vital Signs Last Vital Signs Temp 36.5 C 08/19/21 20:57 Pulse 88 08/19/21 22:36 Resp 18 08/19/21 20:57 BP 112/77 08/19/21 22:34 Pulse Ox 97 08/19/21 22:36 ENMT Mouth: no dentition abnormality Thyromental Distance: > or= 3.5 Finger Breadths Mallampati Class: II Neck normal visual inspection Respiratory normal respiratory effort Auscultation: lungs clear to auscultation bilaterally Cardiovascular Rate/Rhythm: regular rate and regular rhythm Psychiatric Orientation: alert Testing Laboratory Results 08/19/21 21:23 08/19/21 21:22 POC Glucose 83
[2021-08-19] MEDS ORDERED: CALCIUM CARBONATE 500 MG CHEWABLE TAB PO PRN (22:46)
[2021-08-19] MEDS ORDERED: ONDANSETRON INJ 2 MG/ML 2 ML VIAL ONE (23:09)
--- NOTE | 2021-08-19 23:40 | Labor Progress Brief Note ---
Date of Service August 19, 2021 Subjective comfortable with epidural Assessment & Plan (1) Normal labor: (2) with 38 completed weeks gestation: Plan: expectant management. fetus category one. anticipate . Admission and Anticipated Discharge Date Admission Date: August 19, 2021 Physical Exam Physical Exam: cx--/-2 arom--clear toco--3-6min efm--130s wtih mod variabiltiy, accels to 150s, no decels Results & Data ([facility]) Vital Signs (Past 12 Hours) Vital Signs Temp Pulse Resp BP Pulse Ox 08/19/21 23:37 95 H 111/68 08/19/21 23:20 85 117/69 08/19/21 23:16 83 95 08/19/21 23:11 87 95 08/19/21 23:10 109 H 94 08/19/21 23:06 110 H 96 08/19/21 23:01 88 97 08/19/21 23:00 18 08/19/21 22:58 85 92 08/19/21 22:56 86 95 08/19/21 22:51 91 H 114/68 96 08/19/21 22:46 93 H 97 08/19/21 22:41 84 97 08/19/21 22:36 88 97 08/19/21 22:35 85 91 08/19/21 22:34 92 H 112/77 08/19/21 22:31 90 114/77 98 08/19/21 22:28 81 113/75 08/19/21 22:26 89 100 08/19/21 22:21 84 100 08/19/21 22:16 81 100 08/19/21 20:57 36.5 C 18 08/19/21 20:47 86 112/71 08/19/21 20:45 36.5 C 18 Coding Level of Care Code None Diagnoses Normal labor O80; Z37.9 with 38 completed weeks gestation Z3A.38
[2021-08-19] MEDS ORDERED: ONDANSETRON INJ 2 MG/ML 2 ML VIAL IV PRN (23:57)
[2021-08-20] MEDS ORDERED: ACETAMINOPHEN 325 MG TAB PO PRN (01:30)
[2021-08-20] MEDS ORDERED: oxyCODONE/ACETAMINOPHEN 5mg/325mg TAB PO PRN (01:30)
[2021-08-20] MEDS ORDERED: OXYTOCIN 30 UNITS/500 ML BAG IV PRN (01:30)
[2021-08-20] MEDS ORDERED: DIPHTHERIA/TETANUS/PERTUSSIS 0.5 ML SYR/VIAL IM ONE (01:30)
[2021-08-20] MEDS ORDERED: BENZOCAINE 20% AER SPR 82.5 GM CAN EXT PRN (01:30)
[2021-08-20] MEDS ORDERED: SUPERCREAM 0.870% 15 GM JAR EXT PRN (01:30)
[2021-08-20] MEDS ORDERED: HYDROCORTISONE ACETATE 25 MG SUPP PR PRN (01:30)
--- NOTE | 2021-08-20 01:34 | Delivery Summary ---
Vaginal Delivery Summary Date of Service August 20, 2021 Vaginal Delivery Summary [facility] Pre-operative Diagnosis: at 38 weeks active labor Post-operative Diagnosis: same Procedure: epidural arom EBL: 300cc Anesthesia: epidural Procedure: The patient presented to labor and delivery in active labor. She got an epidural and then arom at 5-6cm. She progressed to c/c/+3. The patient pushed for one contraction to deliver a viable female infant in miles position. The nose and mouth were bulb suctioned on the perineum and the rest of the infant was then delivered without difficulty. A nuchal cord x 1 was easily reduced for delivery. The baby was vigorous. The nose and mouth were again bulb suctioned and the was placed in the maternal abdomen for drying and attention. Cord was clamped and cut at one minute of life. Cord blood and segment obtained. Placenta delivered spontaneous, intact with a three vessel cord. Cervix/sulci/rectum/perineum were intact. Hemostasis obtained with dilute pitocin and fundal massage. Apgars were 8/9. Mother and baby doing well at the end of the delivery. [facility] Vaginal Delivery Charge Delivery Type Details: [facility]
[2021-08-20] MEDS: IBUPROFEN 600 MG TAB PO PRN ×4 (03:48→20:01)
[2021-08-20 06:46] LABS: Hematocrit (blood only) 35.5 % (37-47); Hemoglobin 11.8 g/dL (12.0-16.0)
[2021-08-20] MEDS: DOCUSATE SODIUM 100 MG CAP PO SCH ×2 (08:28→20:00)
[2021-08-20] MEDS: PRENATAL VITAMIN 1 TAB PO SCH (08:28)
--- NOTE | 2021-08-20 09:11 | Anesthesia Procedure Note ---
Date of Service August 20, 2021 Anesthesia Post Epidural Note Vital Signs Vital Signs: Temp Pulse Resp BP Pulse Ox 36.8 C 66 18 120/81 99 08/20/21 07:50 08/20/21 07:50 08/20/21 07:50 08/20/21 07:50 08/20/21 07:50 Pain Intensity Bilateral Lower Abdomen: Pain Intensity: 2 Notes Mental Status: alert / awake / arousable and participated in evaluation Nausea / Vomiting: adequately controlled Pain: adequately controlled Airway Patency, RR, SpO2: stable & adequate BP & HR: stable & adequate Hydration State: stable & adequate Neuraxial Anesthesia: was administered and sensory block is resolving Anesthetic Complications: no major complications apparent and Pt Satisfied with anesthetic care Epidural: Removed without complications and With tip intact Notes: Epidural site clean, dry and intact. No signs of edema, erythema or bruising at insertion site. Pt instructed to request anesthesia if she has residual lower extremity numbness or if she develops lower extremity pain or weakness, back pain or headache.
[2021-08-20] MEDS ORDERED: CITALOPRAM 20 MG TAB PO SCH (21:00)
--- NOTE | 2021-08-21 07:17 | Obstetrical Progress Note ---
Date of Service <Sherry Delgado DO - Last Filed: 08/21/21 07:16> August 21, 2021 Assessment & Plan <Sherry Delgado DO - Last Filed: 08/21/21 07:16> (1) Encounter for care and examination after delivery: 31 yo post op day1 from [facility] , doing well. -Continue routine post care. -vital signs reviewed and WNL (Tmax 36.9) -Blood Type A+, GBS-, Rubella immune -Encourage ambulation, monitor and control pain with Motrin, tylenol PRN, resume regular diet, monitor lochia -encourage breast feeding -hemoglobin 11.8 -patient ok with discharge today Day #:: 1 <Michelle Elder MD, FACOG - Last Filed: 08/21/21 09:00> (1) Encounter for care and examination after delivery: Subjective <Sherry Delgado DO - Last Filed: 08/21/21 07:16> Ambulation: ambulating normally Voiding: no voiding problems Passing Gas:: Yes Diet Tolerance:: regular diet Lochia:: Small Feeding Type:: breast feeding Current Pain Level(1-10): 3 Review of Systems Negative fever chills Negative headache dizziness Negative chest pain palpitations SOB Negative nausea vomitting diarrhea constipation Negative numbness tingling rash swelling Physical Exam <Sherry Delgado DO - Last Filed: 08/21/21 07:16> General: Alert, oriented. No acute distress. Cardiac: Regular rate and rhythm, no murmurs/rubs/gallops. Respiratory: Clear to auscultation bilaterally a/p, no wheezes/rales/rhonchi. No increased work of breathing. Symmetrical chest rise. No respiratory distress. Abdomen: Soft, nontender, nondistended. Bowel sounds present. Uterus: Uterine fundus firm, palpable at umbilicus. Lower Extremities: No lower extremity edema or swelling. No deep calf pain. Dionne's negative bilaterally.. Results & Data ([facility]) <Sherry Delgado DO - Last Filed: 08/21/21 07:16> Vital Signs (Past 12 Hours) Vital Signs Temp Pulse Resp BP Pulse Ox 08/20/21 23:50 36.9 C 71 18 103/59 L 08/20/21 20:10 36.6 C 72 20 111/75 97 <Michelle Elder MD, FACOG - Last Filed: 08/21/21 09:00> Co-Signing Physician Notes Resident Physician Supervision Note: I was present with Dr. Delgado during the history and exam. I discussed the case with the resident and agree with the findings and plan as documented in the note. Any exceptions or clarifications are listed here: stable, doing well, ready to go home, instructions reviewed. f/u 6wk pp check. Documented By: Michelle Elder MD, FACOG Resident Activity Tracking <Sherry Delgado DO - Last Filed: 08/21/21 07:16> Resident Involvement: Resident Care Provided Care Provided: Adult Hospital Medicine
[2021-08-21] MEDS: PRENATAL VITAMIN 1 TAB PO SCH (08:10)
[2021-08-21] MEDS: DOCUSATE SODIUM 100 MG CAP PO SCH (08:10)
[2021-08-21] MEDS: IBUPROFEN 600 MG TAB PO PRN (08:10)
[2021-08-21] MEDS ORDERED: bisacodyL 5 MG TABEC PO SCH (20:00)
[2021-08-22] MEDS ORDERED: bisacodyL 10 MG SUPP PR PRN (01:30)
== END 2021-08-21 11:55 | disposition home or self-care (01) | DRG 806 ==
LOC: OPB 20:32 → 4S1 20:38 → 4S2 08-20 04:00